=== PATIENT | female | born 1995 | race American Indian/Alaskan Native ===

== ENCOUNTER 2021-01-29 10:51 | Outpatient (CLI) | payer OTHER ==
[2021-01-29 11:33] VITALS: BP 137/67
== END 2021-01-29 12:43 | disposition home or self-care (01) ==
LOC: TRG 10:51 → APU 10:52 → TRG 12:43
PROVIDERS: ATTEND Obstetrics & Gynecology
DX: Z34.90 Encounter for supervision of normal pregnancy, unspecified, unspecified trimester (principal); Z3A.00 Weeks of gestation of pregnancy not specified
CPT/HCPCS: 59025

== ENCOUNTER 2021-03-24 11:21 | Inpatient (IN) | payer SELFPAY ==
[2021-03-24] MEDS ORDERED: LACTATED RINGERS 1,000 ML ONE (13:05)
--- NOTE | 2021-03-24 13:49 | Ultrasound Report ---
ULTRASOUND OBSTETRIC COMPLETE INDICATION / CLINICAL INFORMATION: growth/gestation. No care. Clinical Gestational Age (GA) in weeks.days: Uncertain TECHNIQUE: Transabdominal. COMPARISON: None available. FINDINGS: NUMBER: Single PRESENTATION: cephalic PLACENTA: Left lateral, grade 1 and free of the os. MATERNAL ADNEXA: No significant abnormality. AMNIOTIC FLUID VOLUME: Borderline to mildly increased AMNIOTIC FLUID INDEX (SEFERINO) in cm (if measured): 24.4 ANATOMY: anatomical survey was not performed. MEASUREMENTS: - Biparietal Diameter = 10.0 cm = 41.1 weeks.days - Head Circumference = 34.1 cm = 39.2 weeks.days - Abdominal Circumference = 36.1 cm = 40.0 weeks.days - Femur Length = 6.9 cm = 35.4 weeks.days - Heart Rate (beats per minute): 156 HC/AC ratio: 0.94 Cephalic index: 89.0 Estimated weight: 3713 g AVERAGE ULTRASOUND AGE (AUA) in weeks.days = 39.0 IMPRESSION: 1. Single intrauterine with AUA of 39.0 weeks.days 2. No significant sonographic abnormality. Signer Name: Marcos Cosby Jr, MD Signed: 03/24/2021 1:44 PM Workstation Name: [id number]
[2021-03-24 14:46] LABS: Amorphous Crystals,Urine Few; Bacteria,Urine 1+ /HPF (Negative); Bilirubin,Urine NEG (Negative); Blood,Urine NEG (Negative); Color,Urine Yellow (Yellow); Protein,Urine <15 mg/dL mg/dL (Negative); Urobilinogen,Urine < 2.0 mg/dL (<2.0)
[2021-03-24 14:53] LABS: Amphetamine Screen,Urine Negative; Benzodiazepines Screen,Urine Negative; Cannabinoid Screen,Urine Negative; Cocaine Screen,Urine Negative; Methadone Screen,Urine Negative; Opiate Screen,Urine Negative
[2021-03-24 15:05] LABS: Mean Corpuscular HGB Conc 30 % (30-34); Mean Corpuscular Volume 81 fl (79-97); Platelet Count 308 K/mm3 (140-440); Red Blood Count 4.52 M/mm3 (3.65-5.03); Red Cell Distribution Width 16.2 % (13.2-15.2)
--- NOTE | 2021-03-24 15:13 | History and Physical Report ---
History of Present Illness Date of examination: 03/24/21 Date of admission: 03/24/2021 Chief complaint: I took my blood pressure [place] [facility] [place] and it was high. I am having some pain under my right breast. History of present illness: Pt is a 25 y.o. who presented to triage, unknown gestation and LMP, with c/o an elevated blood pressure that she obtained from [employer]. Also she has some complaints of pain underneath her right breast. She has not had any PNC because she just moved to the [facility] in September. There is some history of high blood pressure in her last , but states that she was not on medication and was never diagnosed with HTN. Hx of in 2014 @ term with possible pre elcampsia. Past History Past Medical History: hypertension (Remote possible history.) Past Surgical History: no surgical history Family/Genetic History: none Social history: no significant social history, single - Obstetrical History Expected Date of Delivery: 03/31/21 (Per triage ultrasound) Actual Gestation: 39 Week(s) 0 Day(s) : 2 Para: 1 Hx # Term Pregnancies: 1 Number of Pregnancies: 0 Spontaneous Abortions: 0 Induced : 1 Medications and Allergies Allergies Allergy/AdvReac Type Severity Reaction Status Date / Time No Known Allergies Allergy Unverified 01/29/21 12:27 Review of Systems All systems: negative Gastrointestinal: abdominal pain (Epigastric pain. ) - Vital Signs Vital signs: Vital Signs Pulse BP Pulse Ox 70 143/92 99 03/24/21 12:14 03/24/21 12:14 03/24/21 12:14 Temp Pulse Resp BP Pulse Ox 118 H 18 147/72 99 03/24/21 15:09 03/24/21 12:16 03/24/21 15:05 03/24/21 15:09 Pt denies POWELL, blurred vision, spots before her eyes, chest pain, and shortness of breath. She does state that she is having some epigastric pain that started this AM. Blood pressure ranges in triage have been 120-160's/60-105. - Physical Exam Breasts: Positive: deferred Cardiovascular: Regular rate Lungs: Positive: Normal air movement Abdomen: Positive: normal appearance, soft Genitourinary (Female): Positive: normal external genitalia, normal perenium Vulva: both: normal Vagina: Positive: normal moisture Uterus: Positive: normal size Extremities: Positive: edema (Trace edema to hands and lower extermities. ) - Obstetrical FHR: category 1 Uterine Contraction Monitor Mode: External Cervical Dilatation: 0 Cervical Effacement Percentage: 30 station: -4 Uterine Contraction Pattern: Irregular Uterine Tone Measurement Phase: Resting Uterine Contraction Intensity: Mild Results Result Diagrams: 03/24/21 13:10 03/24/21 13:10 Abnormal lab results 03/24/21 Range/Units Unknown U Epithel Cells (Auto) 17.0 H (0-13.0) /HPF All other labs normal. GBS UNKNOWN. labs and pre elcampsia labs drawn on admission. Assessment and Plan A: 25 y.o. @ 39 wks per triage u/s. Pre elcampsia. No care, current . - Patient Problems (1) Pre-eclampsia in third trimester Current Visit: Yes Status: Acute Plan to address problem: Admit to labor and delivery. Initiate IV labs. Draw and pre elcampsia labs. Magnesium infusion. Valdez Catheter placement. Initiate IOL with Cervidil. Continue to monitor blood pressures. Continue to monitor for worsening s/sx of pre eclampsia. (2) No care in current in third trimester Current Visit: Yes Status: Acute (3) with 39 completed weeks gestation Current Visit: Yes Status: Acute Plan to address problem: Continuous EFM.
[2021-03-24] MEDS ORDERED: ONDANSETRON 4 MG/2 ML INJ IV PRN (15:17)
[2021-03-24] MEDS ORDERED: CARBOPROST TROMETHAMINE 250 MCG/1 ML INJ IM PRN (15:17)
[2021-03-24] MEDS ORDERED: OXYTOCIN 10 UNIT/1 ML INJ IM PRN (15:17)
[2021-03-24] MEDS ORDERED: fentaNYL 100 MCG/2 ML INJ IV PRN (15:17)
[2021-03-24] MEDS ORDERED: LOPERAMIDE 2 MG CAP PO PRN (15:17)
[2021-03-24] MEDS ORDERED: PROMETHAZINE 25 MG TAB PO PRN (15:17)
[2021-03-24] MEDS ORDERED: BUTORPHANOL 2 MG/1 ML INJ IV PRN (15:17)
[2021-03-24] MEDS ORDERED: TERBUTALINE 1 MG/1 ML INJ SUB-Q PRN (15:17)
[2021-03-24] MEDS ORDERED: LIDOCAINE (2%) 20 MG/1 ML VIAL 20 ML MDV INFILTRATI ONE (15:17)
[2021-03-24] MEDS ORDERED: ePHEDrine SULFATE 50 MG/1 ML INJ IV PRN (15:17)
[2021-03-24] MEDS ORDERED: miSOPROStol 200 MCG TAB PR PRN (15:17)
[2021-03-24] MEDS ORDERED: ACETAMINOPHEN 500 MG TAB PO PRN (15:17)
[2021-03-24] MEDS ORDERED: NALOXONE 0.4 MG/1 ML INJ IV PRN (15:17)
[2021-03-24] MEDS ORDERED: MINERAL OIL 30 ML ORAL LIQD PO PRN (15:17)
[2021-03-24 15:18] LABS: Alanine Aminotransferase 20 units/L (7-56); Uric Acid 2.8 mg/dL (3.5-7.6)
[2021-03-24 15:33] LABS: Hematocrit 36.7 % (30.3-42.9); Hemoglobin 11.1 gm/dl (10.1-14.3)
[2021-03-24 15:49] LABS: Hepatitis C Virus Antibody Non-Reactive (NonReactive)
[2021-03-24] MEDS ORDERED: OXYTOCIN DRIP 30 UNITS/500 ML BAG IV SCH (16:00)
[2021-03-24] MEDS ORDERED: AMPICILLIN/NS 2 GM/100 ML 2 GM/100 ML BAG IV ONE (16:00)
[2021-03-24] MEDS: LACTATED RINGERS 1,000 ML IV SCH (17:04)
[2021-03-24] MEDS ORDERED: MAGNESIUM SULFATE 4 GM/100 ML BAG IV ONE (17:30)
[2021-03-24] MEDS: MAGNESIUM SULFATE 40GM/1000ML 40 GM/1,000 ML BAG IV SCH (17:36)
[2021-03-24] MEDS ORDERED: miSOPROStol 25 MCG TAB VG ONE (18:00)
[2021-03-24] MEDS ORDERED: DINOPROSTONE 10 MG VAG SUPP VG ONE (20:00)
[2021-03-24] MEDS ORDERED: AMPICILLIN/NS 1 GM/50 ML 1 GM/50 ML BAG IV SCH (20:00)
[2021-03-25] MEDS ORDERED: NALOXONE 2 MG/2 ML INJ IV PRN (01:29)
[2021-03-25] MEDS ORDERED: ePHEDrine SULFATE 50 MG/1 ML INJ IV PRN (01:29)
--- NOTE | 2021-03-25 01:30 | Anesthesia Consultation ---
Anesthesia Consult and Med Hx Date of service: 03/25/21 - Airway Anesthetic Teeth Evaluation: Good ROM Head & Neck: Adequate Mental/Hyoid Distance: Adequate Mallampati Class: Class II Intubation Access Assessment: Probably Good - Pulmonary Exam CTA: Yes - Cardiac Exam Cardiac Exam: RRR - Pre-Operative Health Status ASA Pre-Surgery Classification: ASA3 Proposed Anesthetic Plan: Epidural - Pulmonary Hx Asthma: No COPD: No Hx Pneumonia: No - Cardiovascular System Hx Hypertension: Yes - Central Nervous System Hx Seizures: No Hx Psychiatric Problems: No - Endocrine Hx Renal Disease: No Hx End Stage Renal Disease: No Hx Hypothyroidism: No Hx Hyperthyroidism: No - Hematic Hx Anemia: No Hx Sickle Cell Disease: No - Other Systems Hx Alcohol Use: No
[2021-03-25] MEDS ORDERED: fentaNYL-BUPIV 2 MCG/ML-0.125% 200 MCG/100 ML BAG EPIDURAL SCH (02:00)
[2021-03-25] MEDS: LACTATED RINGERS 1,000 ML IV SCH (06:25)
[2021-03-25] MEDS ORDERED: OXYTOCIN DRIP 30 UNITS/500 ML BAG IV SCH (12:00)
[2021-03-25] MEDS ORDERED: FLU VACC QUAD 2021-22(6MOS UP)/PF 60 MCG/0.5 ML SYRINGE IM ONE (12:00)
--- NOTE | 2021-03-25 12:23 | Progress Note ---
Assessment and Plan pt resting, denies visual changes, epigastric pain or POWELL. She does report painful ctx, SVE 1cms by RN when cervidil removed. Will continue titrating pitocin for adequate labor and revaluate as needed. If no s/s labor after 6 hours, will allow patient to eat and replace cervidil or low dose pitocin tonight. Plan reviewed with patient, all questions addressed. - Patient Problems (1) No care in current in third trimester Current Visit: Yes Status: Acute (2) Pre-eclampsia in third trimester Current Visit: Yes Status: Acute Plan to address problem: Continue IOL Mag sulfate 2gm/hr mag levels q6hrs strict I&O monitor for worsening s/s pre-e (3) with 39 completed weeks gestation Current Visit: Yes Status: Acute Subjective - Subjective Date of service: 03/25/21 Principal diagnosis: IUP @ 39 weeks, no care; pre-e IOL Patient reports: movement normal, contractions, no loss of fluid, no vaginal bleeding, no other (denies POWELL, visual changes or epigastric pain) Objective - Vital Signs Vital Signs: Vital Signs - 12hr 03/25/21 03/25/21 03/25/21 00:22 00:27 00:32 Temperature Pulse Rate 114 H 124 H 124 H Respiratory Rate Blood Pressure Blood Pressure [Left] O2 Sat by Pulse 99 99 98 Oximetry O2 Sat by Pulse Oximetry [ Throughout] 03/25/21 03/25/21 03/25/21 00:37 00:42 00:46 Temperature Pulse Rate 114 H 110 H 117 H Respiratory Rate Blood Pressure 145/68 146/69 Blood Pressure [Left] O2 Sat by Pulse 98 98 Oximetry O2 Sat by Pulse Oximetry [ Throughout] 03/25/21 03/25/21 03/25/21 00:47 00:52 00:57 Temperature Pulse Rate 118 H 112 H 115 H Respiratory Rate Blood Pressure Blood Pressure [Left] O2 Sat by Pulse 99 97 99 Oximetry O2 Sat by Pulse Oximetry [ Throughout] 03/25/21 03/25/21 03/25/21 01:00 01:02 01:07 Temperature 98.3 F Pulse Rate 112 H 112 H 117 H Respiratory 20 Rate Blood Pressure Blood Pressure [Left] O2 Sat by Pulse 98 97 98 Oximetry O2 Sat by Pulse Oximetry [ Throughout] 03/25/21 03/25/2103/25/21 01:09 01:12 01:15 Temperature Pulse Rate 105 H 111 H 116 H Respiratory Rate Blood Pressure 141/73 Blood Pressure [Left] O2 Sat by Pulse 98 94 Oximetry O2 Sat by Pulse Oximetry [ Throughout] 03/25/21 03/25/21 03/25/21 01:17 01:22 01:27 Temperature Pulse Rate 112 H 117 H 116 H Respiratory Rate Blood Pressure Blood Pressure [Left] O2 Sat by Pulse 95 98 98 Oximetry O2 Sat by Pulse Oximetry [ Throughout] 03/25/21 03/25/21 03/25/21 01:32 01:37 01:39 Temperature Pulse Rate 108 H 110 H 107 H Respiratory Rate Blood Pressure 143/70 Blood Pressure [Left] O2 Sat by Pulse 98 96 Oximetry O2 Sat by Pulse Oximetry [ Throughout] 03/25/21 03/25/21 03/25/21 01:42 01:47 01:52 Temperature Pulse Rate 112 H 109 H 106 H Respiratory Rate Blood Pressure Blood Pressure [Left] O2 Sat by Pulse 98 99 98 Oximetry O2 Sat by Pulse Oximetry [ Throughout] 03/25/21 03/25/21 03/25/21 01:57 02:02 02:07 Temperature Pulse Rate 103 H 103 H 109 H Respiratory Rate Blood Pressure 146/67 Blood Pressure [Left] O2 Sat by Pulse 98 97 99 Oximetry O2 Sat by Pulse Oximetry [ Throughout] 03/25/21 03/25/21 03/25/21 02:12 02:17 02:22 Temperature Pulse Rate 114 H 104 H 117 H Respiratory Rate Blood Pressure Blood Pressure [Left] O2 Sat by Pulse 99 98 99 Oximetry O2 Sat by Pulse Oximetry [ Throughout] 03/25/21 03/25/21 03/25/21 02:27 02:30 02:32 Temperature 98.7 F Pulse Rate 118 H 115 H 105 H Respiratory 20 Rate Blood Pressure Blood Pressure [Left] O2 Sat by Pulse 98 98 98 Oximetry O2 Sat by Pulse Oximetry [ Throughout] 03/25/21 03/25/21 03/25/21 02:37 02:42 02:47 Temperature Pulse Rate 115 H 106 H 105 H Respiratory Rate Blood Pressure 140/73 Blood Pressure [Left] O2 Sat by Pulse 99 97 99 Oximetry O2 Sat by Pulse Oximetry [ Throughout] 03/25/21 03/25/21 03/25/21 02:52 02:57 03:02 Temperature Pulse Rate 104 H 105 H 103 H Respiratory Rate Blood Pressure Blood Pressure [Left] O2 Sat by Pulse 98 98 98 Oximetry O2 Sat by Pulse Oximetry [ Throughout] 03/25/21 03/25/21 03/25/21 03:07 03:12 03:17 Temperature Pulse Rate 105 H 106 H 109 H Respiratory Rate Blood Pressure 133/62 Blood Pressure [Left] O2 Sat by Pulse 98 97 97 Oximetry O2 Sat by Pulse Oximetry [ Throughout] 03/25/21 03/25/21 03/25/21 03:22 03:27 03:29 Temperature Pulse Rate 118 H 123 H 114 H Respiratory Rate Blood Pressure Blood Pressure [Left] O2 Sat by Pulse 96 97 94 Oximetry O2 Sat by Pulse Oximetry [ Throughout] 03/25/21 03/25/21 03/25/21 03:32 03:37 03:40 Temperature 97.9 F Pulse Rate 120 H 115 H 115 H Respiratory 18 Rate Blood Pressure 144/70 Blood Pressure [Left] O2 Sat by Pulse 99 98 98 Oximetry O2 Sat by Pulse Oximetry [ Throughout] 03/25/21 03/25/21 03/25/21 03:42 03:47 03:52 Temperature Pulse Rate 119 H 122 H 119 H Respiratory Rate Blood Pressure Blood Pressure [Left] O2 Sat by Pulse 96 99 97 Oximetry O2 Sat by Pulse Oximetry [ Throughout] 03/25/21 03/25/21 03/25/21 03:57 04:02 04:07 Temperature Pulse Rate 108 H 120 H 112 H Respiratory Rate Blood Pressure Blood Pressure [Left] O2 Sat by Pulse 98 98 99 Oximetry O2 Sat by Pulse Oximetry [ Throughout] 03/25/21 03/25/21 03/25/21 04:08 04:12 04:17 Temperature Pulse Rate 116 H 115 H 109 H Respiratory Rate Blood Pressure 141/80 Blood Pressure [Left] O2 Sat by Pulse 99 99 Oximetry O2 Sat by Pulse Oximetry [ Throughout] 03/25/21 03/25/21 03/25/21 04:22 04:27 04:30 Temperature 98.2 F Pulse Rate 112 H 108 H 108 H Respiratory 20 Rate Blood Pressure Blood Pressure [Left] O2 Sat by Pulse 99 99 98 Oximetry O2 Sat by Pulse Oximetry [ Throughout] 03/25/21 03/25/21 03/25/21 04:32 04:37 04:42 Temperature Pulse Rate 118 H 105 H 113 H Respiratory Rate Blood Pressure 144/71 Blood Pressure [Left] O2 Sat by Pulse 98 98 98 Oximetry O2 Sat by Pulse Oximetry [ Throughout] 03/25/21 03/25/21 03/25/21 04:47 04:52 04:57 Temperature Pulse Rate 112 H 105 H 108 H Respiratory Rate Blood Pressure Blood Pressure [Left] O2 Sat by Pulse 98 98 98 Oximetry O2 Sat by Pulse Oximetry [ Throughout] 03/25/21 03/25/21 03/25/21 05:02 05:07 05:12 Temperature Pulse Rate 109 H 115 H 109 H Respiratory Rate Blood Pressure 139/73 Blood Pressure [Left] O2 Sat by Pulse 97 99 98 Oximetry O2 Sat by Pulse Oximetry [ Throughout] 03/25/21 03/25/21 03/25/21 05:17 05:22 05:27 Temperature Pulse Rate 107 H 102 H 111 H Respiratory Rate Blood Pressure Blood Pressure [Left] O2 Sat by Pulse 97 97 98 Oximetry O2 Sat by Pulse Oximetry [ Throughout] 03/25/21 03/25/21 03/25/21 05:30 05:32 05:37 Temperature 98.7 F Pulse Rate 111 H 113 H 112 H Respiratory 20 Rate Blood Pressure Blood Pressure [Left] O2 Sat by Pulse 98 97 98 Oximetry O2 Sat by Pulse Oximetry [ Throughout] 03/25/21 03/25/21 03/25/21 05:38 05:42 05:47 Temperature Pulse Rate 112 H 111 H 120 H Respiratory Rate Blood Pressure 138/69 Blood Pressure [Left] O2 Sat by Pulse 98 98 Oximetry O2 Sat by Pulse Oximetry [ Throughout] 03/25/21 03/25/21 03/25/21 05:52 05:57 06:02 Temperature Pulse Rate 108 H 107 H 111 H Respiratory Rate Blood Pressure Blood Pressure [Left] O2 Sat by Pulse 98 100 98 Oximetry O2 Sat by Pulse Oximetry [ Throughout] 03/25/21 03/25/21 03/25/21 06:07 06:08 06:12 Temperature Pulse Rate 108 H 106 H 107 H Respiratory Rate Blood Pressure 148/67 Blood Pressure [Left] O2 Sat by Pulse 99 98 Oximetry O2 Sat by Pulse Oximetry [ Throughout] 03/25/21 03/25/21 03/25/21 06:17 06:22 06:25 Temperature 98.8 F Pulse Rate 107 H 111 H 110 H Respiratory 18 Rate Blood Pressure Blood Pressure [Left] O2 Sat by Pulse 98 98 99 Oximetry O2 Sat by Pulse Oximetry [ Throughout] 03/25/21 03/25/21 03/25/21 06:27 06:32 06:37 Temperature Pulse Rate 106 H 114 H 114 H Respiratory Rate Blood Pressure 149/67 Blood Pressure [Left] O2 Sat by Pulse 98 97 98 Oximetry O2 Sat by Pulse Oximetry [ Throughout] 03/25/21 03/25/21 03/25/21 06:42 06:47 06:52 Temperature Pulse Rate 107 H 107 H 105 H Respiratory Rate Blood Pressure Blood Pressure [Left] O2 Sat by Pulse 97 98 97 Oximetry O2 Sat by Pulse Oximetry [ Throughout] 03/25/21 03/25/21 03/25/21 06:57 07:01 07:02 Temperature 98.0 F Pulse Rate 114 H 111 H 115 H Respiratory 20 Rate Blood Pressure 142/67 Blood Pressure 142/67 [Left] O2 Sat by Pulse 97 99 99 Oximetry O2 Sat by Pulse Oximetry [ Throughout] 03/25/21 03/25/21 03/25/21 07:07 07:12 07:17 Temperature Pulse Rate 107 H 105 H 113 H Respiratory Rate Blood Pressure Blood Pressure [Left] O2 Sat by Pulse 98 99 99 Oximetry O2 Sat by Pulse Oximetry [ Throughout] 03/25/21 03/25/21 03/25/21 07:22 07:27 07:31 Temperature Pulse Rate 109 H 103 H Respiratory Rate Blood Pressure Blood Pressure [Left] O2 Sat by Pulse 96 98 Oximetry O2 Sat by Pulse 98 Oximetry [ Throughout] 03/25/21 03/25/21 03/25/21 07:32 07:37 07:42 Temperature Pulse Rate 108 H 116 H 110 H Respiratory Rate Blood Pressure Blood Pressure [Left] O2 Sat by Pulse 98 99 98 Oximetry O2 Sat by Pulse Oximetry [ Throughout] 03/25/21 03/25/21 03/25/21 07:47 07:52 07:57 Temperature Pulse Rate 109 H 115 H 112 H Respiratory Rate Blood Pressure Blood Pressure [Left] O2 Sat by Pulse 98 99 98 Oximetry O2 Sat by Pulse Oximetry [ Throughout] 03/25/21 03/25/21 03/25/21 08:02 08:03 08:07 Temperature Pulse Rate 125 H 120 H 116 H Respiratory Rate Blood Pressure 145/66 Blood Pressure [Left] O2 Sat by Pulse 99 97 Oximetry O2 Sat by Pulse Oximetry [ Throughout] 03/25/21 03/25/21 03/25/21 08:12 08:17 08:22 Temperature Pulse Rate 110 H 109 H 113 H Respiratory Rate Blood Pressure Blood Pressure [Left] O2 Sat by Pulse 98 99 98 Oximetry O2 Sat by Pulse Oximetry [ Throughout] 03/25/21 03/25/21 03/25/21 08:27 08:32 08:37 Temperature Pulse Rate 110 H 116 H 109 H Respiratory Rate Blood Pressure Blood Pressure [Left] O2 Sat by Pulse 99 99 98 Oximetry O2 Sat by Pulse Oximetry [ Throughout] 03/25/21 03/25/21 03/25/21 08:42 08:47 08:52 Temperature Pulse Rate 118 H 115 H 115 H Respiratory Rate Blood Pressure Blood Pressure [Left] O2 Sat by Pulse 99 99 98 Oximetry O2 Sat by Pulse Oximetry [ Throughout] 03/25/21 03/25/21 03/25/21 08:57 09:02 09:03 Temperature Pulse Rate 112 H 117 H 115 H Respiratory Rate Blood Pressure 151/67 Blood Pressure [Left] O2 Sat by Pulse 98 99 Oximetry O2 Sat by Pulse Oximetry [ Throughout] 03/25/21 03/25/21 03/25/21 09:07 09:12 09:17 Temperature Pulse Rate 115 H 111 H 124 H Respiratory Rate Blood Pressure Blood Pressure [Left] O2 Sat by Pulse 97 99 98 Oximetry O2 Sat by Pulse Oximetry [ Throughout] 03/25/21 03/25/21 03/25/21 09:22 09:27 09:32 Temperature Pulse Rate 112 H 121 H 119 H Respiratory Rate Blood Pressure Blood Pressure [Left] O2 Sat by Pulse 97 98 99 Oximetry O2 Sat by Pulse Oximetry [ Throughout] 03/25/21 03/25/21 03/25/21 09:37 09:42 09:47 Temperature Pulse Rate 114 H 114 H 113 H Respiratory Rate Blood Pressure Blood Pressure [Left] O2 Sat by Pulse 98 98 97 Oximetry O2 Sat by Pulse Oximetry [ Throughout] 03/25/21 03/25/21 03/25/21 09:52 09:57 10:02 Temperature Pulse Rate 119 H 112 H 116 H Respiratory Rate Blood Pressure 141/65 Blood Pressure [Left] O2 Sat by Pulse 98 98 98 Oximetry O2 Sat by Pulse Oximetry [ Throughout] 03/25/21 03/25/21 03/25/21 10:07 10:12 10:17 Temperature Pulse Rate 119 H 111 H 115 H Respiratory Rate Blood Pressure Blood Pressure [Left] O2 Sat by Pulse 96 98 99 Oximetry O2 Sat by Pulse Oximetry [ Throughout] 03/25/21 03/25/21 03/25/21 10:22 10:27 10:32 Temperature Pulse Rate 110 H 121 H 114 H Respiratory Rate Blood Pressure Blood Pressure [Left] O2 Sat by Pulse 98 98 99 Oximetry O2 Sat by Pulse Oximetry [ Throughout] 03/25/21 03/25/21 03/25/21 10:37 10:42 10:47 Temperature Pulse Rate 112 H 114 H 113 H Respiratory Rate Blood Pressure Blood Pressure [Left] O2 Sat by Pulse 98 98 98 Oximetry O2 Sat by Pulse Oximetry [ Throughout] 03/25/21 03/25/21 03/25/21 10:49 10:52 10:57 Temperature 98.3 F Pulse Rate 105 H 111 H 111 H Respiratory 18 Rate Blood Pressure Blood Pressure [Left] O2 Sat by Pulse 98 98 98 Oximetry O2 Sat by Pulse Oximetry [ Throughout] 03/25/21 03/25/21 03/25/21 11:02 11:03 11:07 Temperature Pulse Rate 110 H 111 H 109 H Respiratory Rate Blood Pressure 137/65 Blood Pressure [Left] O2 Sat by Pulse 97 98 Oximetry O2 Sat by Pulse Oximetry [ Throughout] 03/25/21 03/25/21 03/25/21 11:12 11:17 11:22 Temperature Pulse Rate 112 H 113 H 110 H Respiratory Rate Blood Pressure Blood Pressure [Left] O2 Sat by Pulse 98 98 97 Oximetry O2 Sat by Pulse Oximetry [ Throughout] 03/25/21 03/25/21 03/25/21 11:27 11:32 11:37 Temperature Pulse Rate 109 H 114 H 118 H Respiratory Rate Blood Pressure Blood Pressure [Left] O2 Sat by Pulse 98 98 98 Oximetry O2 Sat by Pulse Oximetry [ Throughout] 03/25/21 03/25/21 03/25/21 11:42 11:47 11:52 Temperature Pulse Rate 120 H 118 H 111 H Respiratory Rate Blood Pressure Blood Pressure [Left] O2 Sat by Pulse 98 97 98 Oximetry O2 Sat by Pulse Oximetry [ Throughout] 03/25/21 03/25/21 03/25/21 11:57 12:02 12:07 Temperature Pulse Rate 106 H 110 H 113 H Respiratory Rate Blood Pressure 134/63 Blood Pressure [Left] O2 Sat by Pulse 98 99 99 Oximetry O2 Sat by Pulse Oximetry [ Throughout] 03/25/21 03/25/21 12:12 12:17 Temperature Pulse Rate 108 H 106 H Respiratory Rate Blood Pressure Blood Pressure [Left] O2 Sat by Pulse 99 98 Oximetry O2 Sat by Pulse Oximetry [ Throughout] - Exam Cardiovascular: Regular rate Lungs: Normal air movement Abdomen: Present: normal appearance, soft, normal bowel sounds Uterus: Present: normal FHR: category 2 Uterine Contraction Monitor Mode: External Cervical Dilatation: 1 (per RN) Cervical Effacement Percentage: 30 Uterine Contraction Pattern: Regular Uterine Tone Measurement Phase: Contraction Uterine Contraction Intensity: Mild Extremities: normal Deep Tendon Reflex Grade: Normal +2 - Labs Labs: Abnormal Labs 03/24/21 03/24/21 03/24/21 13:10 13:10 18:49 MCH 25 L RDW 16.2 H Creatinine 0.5 L Uric Acid 2.8 L Magnesium 2.80 H Lactate Dehydrogenase 233 H U Epithel Cells (Auto) 03/24/21 03/25/21 03/25/21 Unknown 00:19 05:56 MCH RDW Creatinine Uric Acid Magnesium 3.60 H 3.90 H Lactate Dehydrogenase U Epithel Cells (Auto) 17.0 H Laboratory Results - last 24 hr 03/24/21 03/24/21 03/24/21 13:10 13:10 13:10 WBC 10.5 RBC 4.52 Hgb 11.1 Hct 36.7 MCV 81 MCH 25 L MCHC 30 RDW 16.2 H Plt Count 308 Creatinine 0.5 L Estimated GFR > 60 Uric Acid 2.8 L Magnesium AST 24 ALT 20 Lactate Dehydrogenase 233 H Urine Color Urine Turbidity Urine pH Ur Specific [place] Urine Protein Urine Glucose (UA) Urine Ketones Urine Blood Urine Nitrite Urine Bilirubin Urine Urobilinogen Ur Leukocyte Esterase Urine WBC (Auto) Urine RBC (Auto) U Epithel Cells (Auto) Urine Bacteria (Auto) Amorphous Crystals Urine Opiates Screen Urine Methadone Screen Ur Barbiturates Screen Ur Phencyclidine Scrn Ur Amphetamines Screen U Benzodiazepines Scrn Urine Cocaine Screen U Marijuana (THC) Screen Drugs of Abuse Note Syphilis IgG Antibody Nonreactive Hep Bs Antigen Hepatitis C Antibody Non-reactive HIV 1&2 Antibody Rapid Non react HIV P24 Antigen Non react Rubella IgG Antibody Immune Blood Type Antibody Screen 03/24/21 03/24/21 03/24/21 13:10 13:10 18:49 WBC RBC Hgb Hct MCV MCH MCHC RDW Plt Count Creatinine Estimated GFR Uric Acid Magnesium 2.80 H AST ALT Lactate Dehydrogenase Urine Color Urine Turbidity Urine pH Ur Specific [place] Urine Protein Urine Glucose (UA) Urine Ketones Urine Blood Urine Nitrite Urine Bilirubin Urine Urobilinogen Ur Leukocyte Esterase Urine WBC (Auto) Urine RBC (Auto) U Epithel Cells (Auto) Urine Bacteria (Auto) Amorphous Crystals Urine Opiates Screen Urine Methadone Screen Ur Barbiturates Screen Ur Phencyclidine Scrn Ur Amphetamines Screen U Benzodiazepines Scrn Urine Cocaine Screen U Marijuana (THC) Screen Drugs of Abuse Note Syphilis IgG Antibody Hep Bs Antigen Nonreactive Hepatitis C Antibody HIV 1&2 Antibody Rapid HIV P24 Antigen Rubella IgG Antibody Blood Type B POSITIVE Antibody Screen Negative 03/24/21 03/24/21 03/25/21 Unknown Unknown 00:19 WBC RBC Hgb Hct MCV MCH MCHC RDW Plt Count Creatinine Estimated GFR Uric Acid Magnesium 3.60 H AST ALT Lactate Dehydrogenase Urine Color Yellow Urine Turbidity Clear Urine pH 7.0 Ur Specific [place] 1.004 Urine Protein <15 mg/dl Urine Glucose (UA) Neg Urine Ketones Neg Urine Blood Neg Urine Nitrite Neg Urine Bilirubin Neg Urine Urobilinogen < 2.0 Ur Leukocyte Esterase Neg Urine WBC (Auto) 2.0 Urine RBC (Auto) 1.0 U Epithel Cells (Auto) 17.0 H Urine Bacteria (Auto) 1+ Amorphous Crystals Few Urine Opiates Screen Negative Urine Methadone Screen Negative Ur Barbiturates Screen Negative Ur Phencyclidine Scrn Negative Ur Amphetamines Screen Negative U Benzodiazepines Scrn Negative Urine Cocaine Screen Negative U Marijuana (THC) Screen Negative Drugs of Abuse Note Disclamer Syphilis IgG Antibody Hep Bs Antigen Hepatitis C Antibody HIV 1&2 Antibody Rapid HIV P24 Antigen Rubella IgG Antibody Blood Type Antibody Screen 03/25/21 05:56 WBC RBC Hgb Hct MCV MCH MCHC RDW Plt Count Creatinine Estimated GFR Uric Acid Magnesium 3.90 H AST ALT Lactate Dehydrogenase Urine Color Urine Turbidity Urine pH Ur Specific [place] Urine Protein Urine Glucose (UA) Urine Ketones Urine Blood Urine Nitrite Urine Bilirubin Urine Urobilinogen Ur Leukocyte Esterase Urine WBC (Auto) Urine RBC (Auto) U Epithel Cells (Auto) Urine Bacteria (Auto) Amorphous Crystals Urine Opiates Screen Urine Methadone Screen Ur Barbiturates Screen Ur Phencyclidine Scrn Ur Amphetamines Screen U Benzodiazepines Scrn Urine Cocaine Screen U Marijuana (THC) Screen Drugs of Abuse Note Syphilis IgG Antibody Hep Bs Antigen Hepatitis C Antibody HIV 1&2 Antibody Rapid HIV P24 Antigen Rubella IgG Antibody Blood Type Antibody Screen
[2021-03-25] MEDS: MAGNESIUM SULFATE 40GM/1000ML 40 GM/1,000 ML BAG IV SCH (13:10)
[2021-03-25] MEDS ORDERED: AMPICILLIN/NS 2 GM/100 ML 2 GM/100 ML BAG IV ONE (15:00)
--- NOTE | 2021-03-25 16:34 | Progress Note ---
Assessment and Plan patient c/o increased pain with ctx and leaking fluid. SVE done 3.5/80/-2 w/ BBOW. vertex nexted. AROM of forebag - clear. Offered pain intervention - pt denies. states she went natural with last baby and plans on natural this baby. Anticipate - Patient Problems (1) No care in current in third trimester Current Visit: Yes Status: Acute (2) Pre-eclampsia in third trimester Current Visit: Yes Status: Acute Plan to address problem: Continue IOL Mag sulfate 2gm/hr mag levels q6hrs strict I&O monitor for worsening s/s pre-e (3) with 39 completed weeks gestation Current Visit: Yes Status: Acute Subjective - Subjective Date of service: 03/25/21 Principal diagnosis: IUP @ 39 weeks, no care; pre-e IOL Patient reports: loss of fluid (SROM ), movement normal, contractions, no vaginal bleeding, no other (denies POWELL, visual changes or epigastric pain) Objective - Vital Signs Vital Signs: Vital Signs - 12hr 03/25/21 03/25/21 03/25/21 04:32 04:37 04:42 Temperature Pulse Rate 118 H 105 H 113 H Respiratory Rate Blood Pressure 144/71 Blood Pressure [Left] O2 Sat by Pulse 98 98 98 Oximetry O2 Sat by Pulse Oximetry [ Throughout] 03/25/21 03/25/21 03/25/21 04:47 04:52 04:57 Temperature Pulse Rate 112 H 105 H 108 H Respiratory Rate Blood Pressure Blood Pressure [Left] O2 Sat by Pulse 98 98 98 Oximetry O2 Sat by Pulse Oximetry [ Throughout] 03/25/21 03/25/21 03/25/21 05:02 05:07 05:12 Temperature Pulse Rate 109 H 115 H 109 H Respiratory Rate Blood Pressure 139/73 Blood Pressure [Left] O2 Sat by Pulse 97 99 98 Oximetry O2 Sat by Pulse Oximetry [ Throughout] 03/25/21 03/25/21 03/25/21 05:17 05:22 05:27 Temperature Pulse Rate 107 H 102 H 111 H Respiratory Rate Blood Pressure Blood Pressure [Left] O2 Sat by Pulse 97 97 98 Oximetry O2 Sat by Pulse Oximetry [ Throughout] 03/25/21 03/25/21 03/25/21 05:30 05:32 05:37 Temperature 98.7 F Pulse Rate 111 H 113 H 112 H Respiratory 20 Rate Blood Pressure Blood Pressure [Left] O2 Sat by Pulse 98 97 98 Oximetry O2 Sat by Pulse Oximetry [ Throughout] 03/25/21 03/25/21 03/25/21 05:38 05:42 05:47 Temperature Pulse Rate 112 H 111 H 120 H Respiratory Rate Blood Pressure 138/69 Blood Pressure [Left] O2 Sat by Pulse 98 98 Oximetry O2 Sat by Pulse Oximetry [ Throughout] 03/25/21 03/25/21 03/25/21 05:52 05:57 06:02 Temperature Pulse Rate 108 H 107 H 111 H Respiratory Rate Blood Pressure Blood Pressure [Left] O2 Sat by Pulse 98 100 98 Oximetry O2 Sat by Pulse Oximetry [ Throughout] 03/25/21 03/25/21 03/25/21 06:07 06:08 06:12 Temperature Pulse Rate 108 H 106 H 107 H Respiratory Rate Blood Pressure 148/67 Blood Pressure [Left] O2 Sat by Pulse 99 98 Oximetry O2 Sat by Pulse Oximetry [ Throughout] 03/25/21 03/25/21 03/25/21 06:17 06:22 06:25 Temperature 98.8 F Pulse Rate 107 H 111 H 110 H Respiratory 18 Rate Blood Pressure Blood Pressure [Left] O2 Sat by Pulse 98 98 99 Oximetry O2 Sat by Pulse Oximetry [ Throughout] 03/25/21 03/25/21 03/25/21 06:27 06:32 06:37 Temperature Pulse Rate 106 H 114 H 114 H Respiratory Rate Blood Pressure 149/67 Blood Pressure [Left] O2 Sat by Pulse 98 97 98 Oximetry O2 Sat by Pulse Oximetry [ Throughout] 03/25/21 03/25/21 03/25/21 06:42 06:47 06:52 Temperature Pulse Rate 107 H 107 H 105 H Respiratory Rate Blood Pressure Blood Pressure [Left] O2 Sat by Pulse 97 98 97 Oximetry O2 Sat by Pulse Oximetry [ Throughout] 03/25/21 03/25/21 03/25/21 06:57 07:01 07:02 Temperature 98.0 F Pulse Rate 114 H 111 H 115 H Respiratory 20 Rate Blood Pressure 142/67 Blood Pressure 142/67 [Left] O2 Sat by Pulse 97 99 99 Oximetry O2 Sat by Pulse Oximetry [ Throughout] 03/25/21 03/25/21 03/25/21 07:07 07:12 07:17 Temperature Pulse Rate 107 H 105 H 113 H Respiratory Rate Blood Pressure Blood Pressure [Left] O2 Sat by Pulse 98 99 99 Oximetry O2 Sat by Pulse Oximetry [ Throughout] 03/25/21 03/25/21 03/25/21 07:22 07:27 07:31 Temperature Pulse Rate 109 H 103 H Respiratory Rate Blood Pressure Blood Pressure [Left] O2 Sat by Pulse 96 98 Oximetry O2 Sat by Pulse 98 Oximetry [ Throughout] 03/25/21 03/25/21 03/25/21 07:32 07:37 07:42 Temperature Pulse Rate 108 H 116 H 110 H Respiratory Rate Blood Pressure Blood Pressure [Left] O2 Sat by Pulse 98 99 98 Oximetry O2 Sat by Pulse Oximetry [ Throughout] 03/25/21 03/25/21 03/25/21 07:47 07:52 07:57 Temperature Pulse Rate 109 H 115 H 112 H Respiratory Rate Blood Pressure Blood Pressure [Left] O2 Sat by Pulse 98 99 98 Oximetry O2 Sat by Pulse Oximetry [ Throughout] 03/25/21 03/25/21 03/25/21 08:02 08:03 08:07 Temperature Pulse Rate 125 H 120 H 116 H Respiratory Rate Blood Pressure 145/66 Blood Pressure [Left] O2 Sat by Pulse 99 97 Oximetry O2 Sat by Pulse Oximetry [ Throughout] 03/25/21 03/25/21 03/25/21 08:12 08:17 08:22 Temperature Pulse Rate 110 H 109 H 113 H Respiratory Rate Blood Pressure Blood Pressure [Left] O2 Sat by Pulse 98 99 98 Oximetry O2 Sat by Pulse Oximetry [ Throughout] 03/25/21 03/25/21 03/25/21 08:27 08:32 08:37 Temperature Pulse Rate 110 H 116 H 109 H Respiratory Rate Blood Pressure Blood Pressure [Left] O2 Sat by Pulse 99 99 98 Oximetry O2 Sat by Pulse Oximetry [ Throughout] 03/25/21 03/25/21 03/25/21 08:42 08:47 08:52 Temperature Pulse Rate 118 H 115 H 115 H Respiratory Rate Blood Pressure Blood Pressure [Left] O2 Sat by Pulse 99 99 98 Oximetry O2 Sat by Pulse Oximetry [ Throughout] 03/25/21 03/25/21 03/25/21 08:57 09:02 09:03 Temperature Pulse Rate 112 H 117 H 115 H Respiratory Rate Blood Pressure 151/67 Blood Pressure [Left] O2 Sat by Pulse 98 99 Oximetry O2 Sat by Pulse Oximetry [ Throughout] 03/25/21 03/25/21 03/25/21 09:07 09:12 09:17 Temperature Pulse Rate 115 H 111 H 124 H Respiratory Rate Blood Pressure Blood Pressure [Left] O2 Sat by Pulse 97 99 98 Oximetry O2 Sat by Pulse Oximetry [ Throughout] 03/25/21 03/25/21 03/25/21 09:22 09:27 09:32 Temperature Pulse Rate 112 H 121 H 119 H Respiratory Rate Blood Pressure Blood Pressure [Left] O2 Sat by Pulse 97 98 99 Oximetry O2 Sat by Pulse Oximetry [ Throughout] 03/25/21 03/25/21 03/25/21 09:37 09:42 09:47 Temperature Pulse Rate 114 H 114 H 113 H Respiratory Rate Blood Pressure Blood Pressure [Left] O2 Sat by Pulse 98 98 97 Oximetry O2 Sat by Pulse Oximetry [ Throughout] 03/25/21 03/25/21 03/25/21 09:52 09:57 10:02 Temperature Pulse Rate 119 H 112 H 116 H Respiratory Rate Blood Pressure 141/65 Blood Pressure [Left] O2 Sat by Pulse 98 98 98 Oximetry O2 Sat by Pulse Oximetry [ Throughout] 03/25/21 03/25/21 03/25/21 10:07 10:12 10:17 Temperature Pulse Rate 119 H 111 H 115 H Respiratory Rate Blood Pressure Blood Pressure [Left] O2 Sat by Pulse 96 98 99 Oximetry O2 Sat by Pulse Oximetry [ Throughout] 03/25/21 03/25/21 03/25/21 10:22 10:27 10:32 Temperature Pulse Rate 110 H 121 H 114 H Respiratory Rate Blood Pressure Blood Pressure [Left] O2 Sat by Pulse 98 98 99 Oximetry O2 Sat by Pulse Oximetry [ Throughout] 03/25/21 03/25/21 03/25/21 10:37 10:42 10:47 Temperature Pulse Rate 112 H 114 H 113 H Respiratory Rate Blood Pressure Blood Pressure [Left] O2 Sat by Pulse 98 98 98 Oximetry O2 Sat by Pulse Oximetry [ Throughout] 03/25/21 03/25/21 03/25/21 10:49 10:52 10:57 Temperature 98.3 F Pulse Rate 105 H 111 H 111 H Respiratory 18 Rate Blood Pressure Blood Pressure [Left] O2 Sat by Pulse 98 98 98 Oximetry O2 Sat by Pulse Oximetry [ Throughout] 03/25/21 03/25/21 03/25/21 11:02 11:03 11:07 Temperature Pulse Rate 110 H 111 H 109 H Respiratory Rate Blood Pressure 137/65 Blood Pressure [Left] O2 Sat by Pulse 97 98 Oximetry O2 Sat by Pulse Oximetry [ Throughout] 03/25/21 03/25/21 03/25/21 11:12 11:17 11:22 Temperature Pulse Rate 112 H 113 H 110 H Respiratory Rate Blood Pressure Blood Pressure [Left] O2 Sat by Pulse 98 98 97 Oximetry O2 Sat by Pulse Oximetry [ Throughout] 03/25/21 03/25/21 03/25/21 11:27 11:32 11:37 Temperature Pulse Rate 109 H 114 H 118 H Respiratory Rate Blood Pressure Blood Pressure [Left] O2 Sat by Pulse 98 98 98 Oximetry O2 Sat by Pulse Oximetry [ Throughout] 03/25/21 03/25/21 03/25/21 11:42 11:47 11:52 Temperature Pulse Rate 120 H 118 H 111 H Respiratory Rate Blood Pressure Blood Pressure [Left] O2 Sat by Pulse 98 97 98 Oximetry O2 Sat by Pulse Oximetry [ Throughout] 03/25/21 03/25/21 03/25/21 11:57 12:02 12:07 Temperature Pulse Rate 106 H 110 H 113 H Respiratory Rate Blood Pressure 134/63 Blood Pressure [Left] O2 Sat by Pulse 98 99 99 Oximetry O2 Sat by Pulse Oximetry [ Throughout] 03/25/21 03/25/21 03/25/21 12:12 12:17 12:22 Temperature Pulse Rate 108 H 106 H 118 H Respiratory Rate Blood Pressure Blood Pressure [Left] O2 Sat by Pulse 99 98 99 Oximetry O2 Sat by Pulse Oximetry [ Throughout] 03/25/21 03/25/21 03/25/21 12:27 12:32 12:37 Temperature Pulse Rate 113 H 114 H 112 H Respiratory Rate Blood Pressure Blood Pressure [Left] O2 Sat by Pulse 98 96 96 Oximetry O2 Sat by Pulse Oximetry [ Throughout] 03/25/21 03/25/21 03/25/21 12:42 12:47 12:52 Temperature Pulse Rate 112 H 118 H 112 H Respiratory Rate Blood Pressure Blood Pressure [Left] O2 Sat by Pulse 98 99 99 Oximetry O2 Sat by Pulse Oximetry [ Throughout] 03/25/21 03/25/21 03/25/21 12:57 13:02 13:03 Temperature Pulse Rate 112 H 114 H 117 H Respiratory Rate Blood Pressure 135/61 Blood Pressure [Left] O2 Sat by Pulse 99 99 Oximetry O2 Sat by Pulse Oximetry [ Throughout] 03/25/21 03/25/21 03/25/21 13:07 13:12 13:17 Temperature Pulse Rate 111 H 105 H 116 H Respiratory Rate Blood Pressure Blood Pressure [Left] O2 Sat by Pulse 98 97 96 Oximetry O2 Sat by Pulse Oximetry [ Throughout] 03/25/21 03/25/21 03/25/21 13:22 13:27 13:32 Temperature Pulse Rate 109 H 115 H 105 H Respiratory Rate Blood Pressure Blood Pressure [Left] O2 Sat by Pulse 98 99 97 Oximetry O2 Sat by Pulse Oximetry [ Throughout] 03/25/21 03/25/21 03/25/21 13:37 13:42 13:47 Temperature Pulse Rate 120 H 111 H 113 H Respiratory Rate Blood Pressure Blood Pressure [Left] O2 Sat by Pulse 99 97 98 Oximetry O2 Sat by Pulse Oximetry [ Throughout] 03/25/21 03/25/21 03/25/21 13:52 13:57 14:02 Temperature Pulse Rate 109 H 111 H 106 H Respiratory Rate Blood Pressure 142/74 Blood Pressure [Left] O2 Sat by Pulse 100 99 98 Oximetry O2 Sat by Pulse Oximetry [ Throughout] 03/25/21 03/25/21 03/25/21 14:07 14:12 14:17 Temperature Pulse Rate 106 H 112 H 107 H Respiratory Rate Blood Pressure Blood Pressure [Left] O2 Sat by Pulse 99 97 100 Oximetry O2 Sat by Pulse Oximetry [ Throughout] 03/25/21 03/25/21 03/25/21 14:22 14:27 14:32 Temperature Pulse Rate 111 H 106 H 110 H Respiratory Rate Blood Pressure Blood Pressure [Left] O2 Sat by Pulse 99 98 99 Oximetry O2 Sat by Pulse Oximetry [ Throughout] 03/25/21 03/25/21 03/25/21 14:37 14:42 14:47 Temperature Pulse Rate 116 H 113 H 110 H Respiratory Rate Blood Pressure Blood Pressure [Left] O2 Sat by Pulse 98 97 97 Oximetry O2 Sat by Pulse Oximetry [ Throughout] 03/25/21 03/25/21 03/25/21 14:52 14:57 15:02 Temperature Pulse Rate 113 H 111 H 103 H Respiratory Rate Blood Pressure Blood Pressure [Left] O2 Sat by Pulse 99 98 98 Oximetry O2 Sat by Pulse Oximetry [ Throughout] 03/25/21 03/25/21 03/25/21 15:03 15:07 15:12 Temperature Pulse Rate 107 H 105 H 108 H Respiratory Rate Blood Pressure 144/68 Blood Pressure [Left] O2 Sat by Pulse 96 95 Oximetry O2 Sat by Pulse Oximetry [ Throughout] 03/25/21 03/25/21 03/25/21 15:17 15:22 15:27 Temperature 98 F Pulse Rate 105 H 111 H 112 H Respiratory 22 Rate Blood Pressure Blood Pressure [Left] O2 Sat by Pulse 97 98 98 Oximetry O2 Sat by Pulse Oximetry [ Throughout] 03/25/21 03/25/21 03/25/21 15:31 15:32 15:37 Temperature Pulse Rate 106 H 113 H 115 H Respiratory Rate Blood Pressure Blood Pressure [Left] O2 Sat by Pulse 93 98 98 Oximetry O2 Sat by Pulse Oximetry [ Throughout] 03/25/21 03/25/21 03/25/21 15:42 15:46 15:47 Temperature Pulse Rate 109 H 111 H 118 H Respiratory Rate Blood Pressure Blood Pressure [Left] O2 Sat by Pulse 99 91 99 Oximetry O2 Sat by Pulse Oximetry [ Throughout] 03/25/21 03/25/21 03/25/21 15:51 15:52 15:57 Temperature Pulse Rate 111 H 105 H 115 H Respiratory Rate Blood Pressure Blood Pressure [Left] O2 Sat by Pulse 94 98 100 Oximetry O2 Sat by Pulse Oximetry [ Throughout] 03/25/21 03/25/21 03/25/21 16:02 16:07 16:12 Temperature Pulse Rate 109 H 116 H 110 H Respiratory Rate Blood Pressure 142/64 Blood Pressure [Left] O2 Sat by Pulse 98 98 96 Oximetry O2 Sat by Pulse Oximetry [ Throughout] 03/25/21 03/25/21 03/25/21 16:17 16:22 16:25 Temperature Pulse Rate 116 H 111 H 126 H Respiratory Rate Blood Pressure Blood Pressure [Left] O2 Sat by Pulse 95 98 93 Oximetry O2 Sat by Pulse Oximetry [ Throughout] 03/25/21 16:27 Temperature 98.5 F Pulse Rate 117 H Respiratory Rate Blood Pressure Blood Pressure [Left] O2 Sat by Pulse 97 Oximetry O2 Sat by Pulse Oximetry [ Throughout] - Exam Cardiovascular: Regular rate Lungs: Normal air movement Abdomen: Present: normal appearance, soft Vulva: both: normal Uterus: Present: normal FHR: auscultation normal Uterine Contraction Monitor Mode: External Cervical Dilatation: 3.5 (AROM of forebag) Cervical Effacement Percentage: 80 station: -2 Uterine Contraction Frequency (min): 2.5-3 Uterine Contraction Duration: 60 Uterine Contraction Pattern: Regular Uterine Tone Measurement Phase: Contraction Uterine Contraction Intensity: Strong/Firm Extremities: normal Deep Tendon Reflex Grade: Normal +2 - Labs Labs: Abnormal Labs 03/24/21 03/24/21 03/24/21 13:10 13:10 18:49 MCH 25 L RDW 16.2 H Creatinine 0.5 L Uric Acid 2.8 L Magnesium 2.80 H Lactate Dehydrogenase 233 H U Epithel Cells (Auto) 03/24/21 03/25/21 03/25/21 Unknown 00:19 05:56 MCH RDW Creatinine Uric Acid Magnesium 3.60 H 3.90 H Lactate Dehydrogenase U Epithel Cells (Auto) 17.0 H Laboratory Results - last 24 hr 03/24/21 03/24/21 03/24/21 13:10 13:10 18:49 Magnesium 2.80 H Coronavirus (PCR) HIV 1&2 Antibody Rapid Non react HIV P24 Antigen Non react Blood Type B POSITIVE Antibody Screen Negative 03/25/21 03/25/21 03/25/21 00:19 05:56 08:38 Magnesium 3.60 H 3.90 H Coronavirus (PCR) Negative HIV 1&2 Antibody Rapid HIV P24 Antigen Blood Type Antibody Screen
--- NOTE | 2021-03-25 20:50 | Progress Note ---
Assessment and Plan Patient c/o feeling urge to push, SVE unchanged. IUPC placed without difficulty and working well. Encouraged pt to get epidural to help with relaxation. Discussed unknowns by not having care. efw by late third trimester u/s 8#+ - could be bigger by a pound or more (feels 8-9lbs by shirin.) first baby 7#6oz. Pt agrees to have epidural placed. Advised that an operative will be necessary if baby shows signs of distress or if she does not progress. Will reassess @ 2230 or sooner if needed. Dr. Hernandez updated. - Patient Problems (1) No care in current in third trimester Current Visit: Yes Status: Acute (2) Pre-eclampsia in third trimester Current Visit: Yes Status: Acute Plan to address problem: Continue IOL Mag sulfate 2gm/hr mag levels q6hrs strict I&O monitor for worsening s/s pre-e (3) with 39 completed weeks gestation Current Visit: Yes Status: Acute Subjective - Subjective Date of service: 03/25/21 Principal diagnosis: IUP @ 39 weeks, no care; pre-e IOL Patient reports: loss of fluid (SROM ), movement normal, contractions, no vaginal bleeding, no other (denies POWELL, visual changes or epigastric pain) Objective - Vital Signs Vital Signs: Vital Signs - 12hr 03/25/21 03/25/21 03/25/21 08:42 08:47 08:52 Temperature Pulse Rate 118 H 115 H 115 H Respiratory Rate Blood Pressure O2 Sat by Pulse 99 99 98 Oximetry 03/25/21 03/25/21 03/25/21 08:57 09:02 09:03 Temperature Pulse Rate 112 H 117 H 115 H Respiratory Rate Blood Pressure 151/67 O2 Sat by Pulse 98 99 Oximetry 03/25/21 03/25/21 03/25/21 09:07 09:12 09:17 Temperature Pulse Rate 115 H 111 H 124 H Respiratory Rate Blood Pressure O2 Sat by Pulse 97 99 98 Oximetry 03/25/21 03/25/21 03/25/21 09:22 09:27 09:32 Temperature Pulse Rate 112 H 121 H 119 H Respiratory Rate Blood Pressure O2 Sat by Pulse 97 98 99 Oximetry 03/25/21 03/25/21 03/25/21 09:37 09:42 09:47 Temperature Pulse Rate 114 H 114 H 113 H Respiratory Rate Blood Pressure O2 Sat by Pulse 98 98 97 Oximetry 03/25/21 03/25/21 03/25/21 09:52 09:57 10:02 Temperature Pulse Rate 119 H 112 H 116 H Respiratory Rate Blood Pressure 141/65 O2 Sat by Pulse 98 98 98 Oximetry 03/25/21 03/25/21 03/25/21 10:07 10:12 10:17 Temperature Pulse Rate 119 H 111 H 115 H Respiratory Rate Blood Pressure O2 Sat by Pulse 96 98 99 Oximetry 03/25/21 03/25/21 03/25/21 10:22 10:27 10:32 Temperature Pulse Rate 110 H 121 H 114 H Respiratory Rate Blood Pressure O2 Sat by Pulse 98 98 99 Oximetry 03/25/21 03/25/21 03/25/21 10:37 10:42 10:47 Temperature Pulse Rate 112 H 114 H 113 H Respiratory Rate Blood Pressure O2 Sat by Pulse 98 98 98 Oximetry 03/25/21 03/25/21 03/25/21 10:49 10:52 10:57 Temperature 98.3 F Pulse Rate 105 H 111 H 111 H Respiratory 18 Rate Blood Pressure O2 Sat by Pulse 98 98 98 Oximetry 03/25/21 03/25/21 03/25/21 11:02 11:03 11:07 Temperature Pulse Rate 110 H 111 H 109 H Respiratory Rate Blood Pressure 137/65 O2 Sat by Pulse 97 98 Oximetry 03/25/21 03/25/21 03/25/21 11:12 11:17 11:22 Temperature Pulse Rate 112 H 113 H 110 H Respiratory Rate Blood Pressure O2 Sat by Pulse 98 98 97 Oximetry 03/25/21 03/25/21 03/25/21 11:27 11:32 11:37 Temperature Pulse Rate 109 H 114 H 118 H Respiratory Rate Blood Pressure O2 Sat by Pulse 98 98 98 Oximetry 03/25/21 03/25/21 03/25/21 11:42 11:47 11:52 Temperature Pulse Rate 120 H 118 H 111 H Respiratory Rate Blood Pressure O2 Sat by Pulse 98 97 98 Oximetry 03/25/21 03/25/21 03/25/21 11:57 12:02 12:07 Temperature Pulse Rate 106 H 110 H 113 H Respiratory Rate Blood Pressure 134/63 O2 Sat by Pulse 98 99 99 Oximetry 03/25/21 03/25/21 03/25/21 12:12 12:17 12:22 Temperature Pulse Rate 108 H 106 H 118 H Respiratory Rate Blood Pressure O2 Sat by Pulse 99 98 99 Oximetry 03/25/21 03/25/21 03/25/21 12:27 12:32 12:37 Temperature Pulse Rate 113 H 114 H 112 H Respiratory Rate Blood Pressure O2 Sat by Pulse 98 96 96 Oximetry 03/25/21 03/25/21 03/25/21 12:42 12:47 12:52 Temperature Pulse Rate 112 H 118 H 112 H Respiratory Rate Blood Pressure O2 Sat by Pulse 98 99 99 Oximetry 03/25/21 03/25/21 03/25/21 12:57 13:02 13:03 Temperature Pulse Rate 112 H 114 H 117 H Respiratory Rate Blood Pressure 135/61 O2 Sat by Pulse 99 99 Oximetry 03/25/21 03/25/21 03/25/21 13:07 13:12 13:17 Temperature Pulse Rate 111 H 105 H 116 H Respiratory Rate Blood Pressure O2 Sat by Pulse 98 97 96 Oximetry 03/25/21 03/25/21 03/25/21 13:22 13:27 13:32 Temperature Pulse Rate 109 H 115 H 105 H Respiratory Rate Blood Pressure O2 Sat by Pulse 98 99 97 Oximetry 03/25/21 03/25/21 03/25/21 13:37 13:42 13:47 Temperature Pulse Rate 120 H 111 H 113 H Respiratory Rate Blood Pressure O2 Sat by Pulse 99 97 98 Oximetry 03/25/21 03/25/21 03/25/21 13:52 13:57 14:02 Temperature Pulse Rate 109 H 111 H 106 H Respiratory Rate Blood Pressure 142/74 O2 Sat by Pulse 100 99 98 Oximetry 03/25/21 03/25/21 03/25/21 14:07 14:12 14:17 Temperature Pulse Rate 106 H 112 H 107 H Respiratory Rate Blood Pressure O2 Sat by Pulse 99 97 100 Oximetry 03/25/21 03/25/21 03/25/21 14:22 14:27 14:32 Temperature Pulse Rate 111 H 106 H 110 H Respiratory Rate Blood Pressure O2 Sat by Pulse 99 98 99 Oximetry 03/25/21 03/25/21 03/25/21 14:37 14:42 14:47 Temperature Pulse Rate 116 H 113 H 110 H Respiratory Rate Blood Pressure O2 Sat by Pulse 98 97 97 Oximetry 03/25/21 03/25/21 03/25/21 14:52 14:57 15:02 Temperature Pulse Rate 113 H 111 H 103 H Respiratory Rate Blood Pressure O2 Sat by Pulse 99 98 98 Oximetry 03/25/21 03/25/21 03/25/21 15:03 15:07 15:12 Temperature Pulse Rate 107 H 105 H 108 H Respiratory Rate Blood Pressure 144/68 O2 Sat by Pulse 96 95 Oximetry 03/25/21 03/25/21 03/25/21 15:17 15:22 15:27 Temperature 98 F Pulse Rate 105 H 111 H 112 H Respiratory 22 Rate Blood Pressure O2 Sat by Pulse 97 98 98 Oximetry 03/25/21 03/25/21 03/25/21 15:31 15:32 15:37 Temperature Pulse Rate 106 H 113 H 115 H Respiratory Rate Blood Pressure O2 Sat by Pulse 93 98 98 Oximetry 03/25/21 03/25/21 03/25/21 15:42 15:46 15:47 Temperature Pulse Rate 109 H 111 H 118 H Respiratory Rate Blood Pressure O2 Sat by Pulse 99 91 99 Oximetry 03/25/21 03/25/21 03/25/21 15:51 15:52 15:57 Temperature Pulse Rate 111 H 105 H 115 H Respiratory Rate Blood Pressure O2 Sat by Pulse 94 98 100 Oximetry 03/25/21 03/25/21 03/25/21 16:02 16:07 16:12 Temperature Pulse Rate 109 H 116 H 110 H Respiratory Rate Blood Pressure 142/64 O2 Sat by Pulse 98 98 96 Oximetry 03/25/21 03/25/21 03/25/21 16:17 16:22 16:25 Temperature Pulse Rate 116 H 111 H 126 H Respiratory Rate Blood Pressure O2 Sat by Pulse 95 98 93 Oximetry 03/25/21 03/25/21 03/25/21 16:27 16:32 16:37 Temperature 98.5 F Pulse Rate 117 H 121 H 114 H Respiratory Rate Blood Pressure O2 Sat by Pulse 97 98 98 Oximetry 03/25/21 03/25/21 03/25/21 16:42 16:47 16:52 Temperature Pulse Rate 111 H 111 H 111 H Respiratory Rate Blood Pressure O2 Sat by Pulse 98 96 97 Oximetry 03/25/21 03/25/21 03/25/21 16:57 17:02 17:03 Temperature Pulse Rate 112 H 111 H 113 H Respiratory Rate Blood Pressure 140/80 O2 Sat by Pulse 96 97 Oximetry 03/25/21 03/25/21 03/25/21 17:07 17:12 17:17 Temperature Pulse Rate 112 H 110 H 122 H Respiratory Rate Blood Pressure O2 Sat by Pulse 97 94 99 Oximetry 03/25/21 03/25/21 03/25/21 17:22 17:27 17:32 Temperature Pulse Rate 118 H 121 H 119 H Respiratory Rate Blood Pressure O2 Sat by Pulse 98 97 97 Oximetry 03/25/21 03/25/21 03/25/21 17:37 17:42 17:47 Temperature Pulse Rate 122 H 121 H 116 H Respiratory Rate Blood Pressure O2 Sat by Pulse 97 97 97 Oximetry 03/25/21 03/25/21 03/25/21 17:52 17:57 18:02 Temperature Pulse Rate 120 H 118 H 118 H Respiratory Rate Blood Pressure 135/71 O2 Sat by Pulse 98 99 97 Oximetry 03/25/21 03/25/21 03/25/21 18:07 18:12 18:17 Temperature Pulse Rate 121 H 122 H 118 H Respiratory Rate Blood Pressure O2 Sat by Pulse 96 98 98 Oximetry 03/25/21 03/25/21 03/25/21 18:22 18:27 18:32 Temperature Pulse Rate 121 H 116 H 124 H Respiratory Rate Blood Pressure O2 Sat by Pulse 98 98 98 Oximetry 03/25/21 03/25/21 03/25/21 18:37 18:42 18:47 Temperature Pulse Rate 120 H 121 H 122 H Respiratory Rate Blood Pressure O2 Sat by Pulse 99 99 98 Oximetry 03/25/21 03/25/21 03/25/21 18:52 18:57 19:02 Temperature Pulse Rate 128 H 123 H 118 H Respiratory Rate Blood Pressure 136/71 O2 Sat by Pulse 97 98 98 Oximetry 03/25/21 03/25/21 03/25/21 19:07 19:11 19:12 Temperature Pulse Rate 118 H 118 H 119 H Respiratory Rate Blood Pressure 139/71 O2 Sat by Pulse 98 98 Oximetry 03/25/21 03/25/21 03/25/21 19:13 19:17 19:22 Temperature 98.2 F Pulse Rate 119 H 124 H Respiratory Rate Blood Pressure O2 Sat by Pulse 99 98 Oximetry 03/25/21 03/25/21 03/25/21 19:27 19:32 19:37 Temperature Pulse Rate 119 H 117 H 116 H Respiratory Rate Blood Pressure O2 Sat by Pulse 96 97 97 Oximetry 03/25/21 03/25/21 03/25/21 19:42 19:47 19:52 Temperature Pulse Rate 114 H 121 H 116 H Respiratory Rate Blood Pressure O2 Sat by Pulse 97 97 98 Oximetry 03/25/21 03/25/21 03/25/21 19:57 20:02 20:07 Temperature Pulse Rate 123 H 121 H 125 H Respiratory Rate Blood Pressure 136/66 O2 Sat by Pulse 99 97 99 Oximetry 03/25/21 03/25/21 03/25/21 20:12 20:17 20:22 Temperature Pulse Rate 123 H 124 H 122 H Respiratory Rate Blood Pressure O2 Sat by Pulse 98 99 99 Oximetry 03/25/21 03/25/21 20:27 20:32 Temperature Pulse Rate 122 H 119 H Respiratory Rate Blood Pressure O2 Sat by Pulse 97 97 Oximetry - Exam Cardiovascular: Regular rate Lungs: Normal air movement Abdomen: Present: normal appearance, soft Vulva: both: normal Uterus: Present: normal, fundal height above umbilicus FHR: category 1 Uterine Contraction Monitor Mode: Internal Cervical Dilatation: 6 Cervical Effacement Percentage: 80 station: -1 Uterine Contraction Frequency (min): 2-3 Uterine Contraction Duration: 60 Uterine Contraction Pattern: Regular Uterine Tone Measurement Phase: Contraction Uterine Contraction Intensity: Strong/Firm Extremities: normal - Labs Labs: Abnormal Labs 03/24/21 03/24/21 03/24/21 13:10 13:10 18:49 MCH 25 L RDW 16.2 H Creatinine 0.5 L Uric Acid 2.8 L Magnesium 2.80 H Lactate Dehydrogenase 233 H U Epithel Cells (Auto) 03/24/21 03/25/21 03/25/21 Unknown 00:19 05:56 MCH RDW Creatinine Uric Acid Magnesium 3.60 H 3.90 H Lactate Dehydrogenase U Epithel Cells (Auto) 17.0 H 03/25/21 16:39 MCH RDW Creatinine Uric Acid Magnesium 4.10 H Lactate Dehydrogenase U Epithel Cells (Auto) Laboratory Results - last 24 hr 03/24/21 03/25/21 03/25/21 13:10 00:19 05:56 Magnesium 3.60 H 3.90 H Coronavirus (PCR) Blood Type B POSITIVE Antibody Screen Negative 03/25/21 03/25/21 08:38 16:39 Magnesium 4.10 H Coronavirus (PCR) Negative Blood Type Antibody Screen
--- NOTE | 2021-03-25 21:51 | Progress Note ---
Labor Epidural - Labor Epidural Start Time: 21:39 Stop Time: 21:43 Performed by:: BIN BENAVIDEZ Procedure: Patient is requesting epidural for labor pain. H&P, and labs reviewed. Procedure explained, questions answered, consent obtained. Patient in sitting position with blood pressure cuff and pulse ox on and working. Timeout performed immediately before start of procedure. Sterile Duraprep prep/drape. 3 mL 1% lidocaine skin wheal at L[3]-L[4]. 17-gauge tuohy epidural needle advanced to [id number] with saline at [7] cm. 25-gauge spinal needle advanced until clear, free-flowing CSF. Intrathecal dexmedetomidine [5] mcg administered and needle removed. Epidural catheter advanced to [12] cm, negative aspiration for blood and csf, negative test dose 3 ml 1.5% lidocaine with epinephrine. Sterile sponge and tegaderm applied, followed by tape reinforcement. Patient tolerated procedure well.
[2021-03-25] MEDS ORDERED: BICITRA ORAL LIQD 30ML PO ONE (22:12)
[2021-03-25] MEDS ORDERED: FAMOTIDINE 20 MG/2 ML INJ IV ONE (22:12)
[2021-03-25] MEDS ORDERED: LACTATED RINGERS 1,000 ML IV SCH (22:15)
--- NOTE | 2021-03-25 22:19 | Progress Note ---
Assessment and Plan patient comfortable s/p epidural, called by rn d/t bloody amniotic fluid. chucks and towels saturated with bloody fluid, no change in SVE. Dr. Hernandez notified, decision to proceed with c/s. pre-e op orders in EMR. - Patient Problems (1) No care in current in third trimester Current Visit: Yes Status: Acute (2) Pre-eclampsia in third trimester Current Visit: Yes Status: Acute (3) with 39 completed weeks gestation Current Visit: Yes Status: Acute Subjective - Subjective Date of service: 03/25/21 Principal diagnosis: IUP @ 39 weeks, no care; pre-e IOL Patient reports: new complaints, loss of fluid (SROM - now bloody fluid), no vaginal bleeding, no other (denies POWELL, visual changes or epigastric pain) Objective - Vital Signs Vital Signs: Vital Signs - 12hr 03/25/21 03/25/21 03/25/21 10:17 10:22 10:27 Temperature Pulse Rate 115 H 110 H 121 H Respiratory Rate Blood Pressure O2 Sat by Pulse 99 98 98 Oximetry O2 Sat by Pulse Oximetry [ Throughout] 03/25/21 03/25/21 03/25/21 10:32 10:37 10:42 Temperature Pulse Rate 114 H 112 H 114 H Respiratory Rate Blood Pressure O2 Sat by Pulse 99 98 98 Oximetry O2 Sat by Pulse Oximetry [ Throughout] 03/25/21 03/25/21 03/25/21 10:47 10:49 10:52 Temperature 98.3 F Pulse Rate 113 H 105 H 111 H Respiratory 18 Rate Blood Pressure O2 Sat by Pulse 98 98 98 Oximetry O2 Sat by Pulse Oximetry [ Throughout] 03/25/21 03/25/21 03/25/21 10:57 11:02 11:03 Temperature Pulse Rate 111 H 110 H 111 H Respiratory Rate Blood Pressure 137/65 O2 Sat by Pulse 98 97 Oximetry O2 Sat by Pulse Oximetry [ Throughout] 03/25/21 03/25/21 03/25/21 11:07 11:12 11:17 Temperature Pulse Rate 109 H 112 H 113 H Respiratory Rate Blood Pressure O2 Sat by Pulse 98 98 98 Oximetry O2 Sat by Pulse Oximetry [ Throughout] 03/25/21 03/25/21 03/25/21 11:22 11:27 11:32 Temperature Pulse Rate 110 H 109 H 114 H Respiratory Rate Blood Pressure O2 Sat by Pulse 97 98 98 Oximetry O2 Sat by Pulse Oximetry [ Throughout] 03/25/21 03/25/21 03/25/21 11:37 11:42 11:47 Temperature Pulse Rate 118 H 120 H 118 H Respiratory Rate Blood Pressure O2 Sat by Pulse 98 98 97 Oximetry O2 Sat by Pulse Oximetry [ Throughout] 03/25/21 03/25/21 03/25/21 11:52 11:57 12:02 Temperature Pulse Rate 111 H 106 H 110 H Respiratory Rate Blood Pressure 134/63 O2 Sat by Pulse 98 98 99 Oximetry O2 Sat by Pulse Oximetry [ Throughout] 03/25/21 03/25/21 03/25/21 12:07 12:12 12:17 Temperature Pulse Rate 113 H 108 H 106 H Respiratory Rate Blood Pressure O2 Sat by Pulse 99 99 98 Oximetry O2 Sat by Pulse Oximetry [ Throughout] 03/25/21 03/25/21 03/25/21 12:22 12:27 12:32 Temperature Pulse Rate 118 H 113 H 114 H Respiratory Rate Blood Pressure O2 Sat by Pulse 99 98 96 Oximetry O2 Sat by Pulse Oximetry [ Throughout] 03/25/21 03/25/21 03/25/21 12:37 12:42 12:47 Temperature Pulse Rate 112 H 112 H 118 H Respiratory Rate Blood Pressure O2 Sat by Pulse 96 98 99 Oximetry O2 Sat by Pulse Oximetry [ Throughout] 03/25/21 03/25/21 03/25/21 12:52 12:57 13:02 Temperature Pulse Rate 112 H 112 H 114 H Respiratory Rate Blood Pressure O2 Sat by Pulse 99 99 99 Oximetry O2 Sat by Pulse Oximetry [ Throughout] 03/25/21 03/25/21 03/25/21 13:03 13:07 13:12 Temperature Pulse Rate 117 H 111 H 105 H Respiratory Rate Blood Pressure 135/61 O2 Sat by Pulse 98 97 Oximetry O2 Sat by Pulse Oximetry [ Throughout] 03/25/21 03/25/21 03/25/21 13:17 13:22 13:27 Temperature Pulse Rate 116 H 109 H 115 H Respiratory Rate Blood Pressure O2 Sat by Pulse 96 98 99 Oximetry O2 Sat by Pulse Oximetry [ Throughout] 03/25/21 03/25/21 03/25/21 13:32 13:37 13:42 Temperature Pulse Rate 105 H 120 H 111 H Respiratory Rate Blood Pressure O2 Sat by Pulse 97 99 97 Oximetry O2 Sat by Pulse Oximetry [ Throughout] 03/25/21 03/25/21 03/25/21 13:47 13:52 13:57 Temperature Pulse Rate 113 H 109 H 111 H Respiratory Rate Blood Pressure O2 Sat by Pulse 98 100 99 Oximetry O2 Sat by Pulse Oximetry [ Throughout] 03/25/21 03/25/21 03/25/21 14:02 14:07 14:12 Temperature Pulse Rate 106 H 106 H 112 H Respiratory Rate Blood Pressure 142/74 O2 Sat by Pulse 98 99 97 Oximetry O2 Sat by Pulse Oximetry [ Throughout] 03/25/21 03/25/21 03/25/21 14:17 14:22 14:27 Temperature Pulse Rate 107 H 111 H 106 H Respiratory Rate Blood Pressure O2 Sat by Pulse 100 99 98 Oximetry O2 Sat by Pulse Oximetry [ Throughout] 03/25/21 03/25/21 03/25/21 14:32 14:37 14:42 Temperature Pulse Rate 110 H 116 H 113 H Respiratory Rate Blood Pressure O2 Sat by Pulse 99 98 97 Oximetry O2 Sat by Pulse Oximetry [ Throughout] 03/25/21 03/25/21 03/25/21 14:47 14:52 14:57 Temperature Pulse Rate 110 H 113 H 111 H Respiratory Rate Blood Pressure O2 Sat by Pulse 97 99 98 Oximetry O2 Sat by Pulse Oximetry [ Throughout] 03/25/21 03/25/21 03/25/21 15:02 15:03 15:07 Temperature Pulse Rate 103 H 107 H 105 H Respiratory Rate Blood Pressure 144/68 O2 Sat by Pulse 98 96 Oximetry O2 Sat by Pulse Oximetry [ Throughout] 03/25/21 03/25/21 03/25/21 15:12 15:17 15:22 Temperature 98 F Pulse Rate 108 H 105 H 111 H Respiratory 22 Rate Blood Pressure O2 Sat by Pulse 95 97 98 Oximetry O2 Sat by Pulse Oximetry [ Throughout] 03/25/21 03/25/21 03/25/21 15:27 15:31 15:32 Temperature Pulse Rate 112 H 106 H 113 H Respiratory Rate Blood Pressure O2 Sat by Pulse 98 93 98 Oximetry O2 Sat by Pulse Oximetry [ Throughout] 03/25/21 03/25/21 03/25/21 15:37 15:42 15:46 Temperature Pulse Rate 115 H 109 H 111 H Respiratory Rate Blood Pressure O2 Sat by Pulse 98 99 91 Oximetry O2 Sat by Pulse Oximetry [ Throughout] 03/25/21 03/25/21 03/25/21 15:47 15:51 15:52 Temperature Pulse Rate 118 H 111 H 105 H Respiratory Rate Blood Pressure O2 Sat by Pulse 99 94 98 Oximetry O2 Sat by Pulse Oximetry [ Throughout] 03/25/21 03/25/21 03/25/21 15:57 16:02 16:07 Temperature Pulse Rate 115 H 109 H 116 H Respiratory Rate Blood Pressure 142/64 O2 Sat by Pulse 100 98 98 Oximetry O2 Sat by Pulse Oximetry [ Throughout] 03/25/21 03/25/21 03/25/21 16:12 16:17 16:22 Temperature Pulse Rate 110 H 116 H 111 H Respiratory Rate Blood Pressure O2 Sat by Pulse 96 95 98 Oximetry O2 Sat by Pulse Oximetry [ Throughout] 03/25/21 03/25/21 03/25/21 16:25 16:27 16:32 Temperature 98.5 F Pulse Rate 126 H 117 H 121 H Respiratory Rate Blood Pressure O2 Sat by Pulse 93 97 98 Oximetry O2 Sat by Pulse Oximetry [ Throughout] 03/25/21 03/25/21 03/25/21 16:37 16:42 16:47 Temperature Pulse Rate 114 H 111 H 111 H Respiratory Rate Blood Pressure O2 Sat by Pulse 98 98 96 Oximetry O2 Sat by Pulse Oximetry [ Throughout] 03/25/21 03/25/21 03/25/21 16:52 16:57 17:02 Temperature Pulse Rate 111 H 112 H 111 H Respiratory Rate Blood Pressure O2 Sat by Pulse 97 96 97 Oximetry O2 Sat by Pulse Oximetry [ Throughout] 03/25/21 03/25/21 03/25/21 17:03 17:07 17:12 Temperature Pulse Rate 113 H 112 H 110 H Respiratory Rate Blood Pressure 140/80 O2 Sat by Pulse 97 94 Oximetry O2 Sat by Pulse Oximetry [ Throughout] 03/25/21 03/25/21 03/25/21 17:17 17:22 17:27 Temperature Pulse Rate 122 H 118 H 121 H Respiratory Rate Blood Pressure O2 Sat by Pulse 99 98 97 Oximetry O2 Sat by Pulse Oximetry [ Throughout] 03/25/21 03/25/21 03/25/21 17:32 17:37 17:42 Temperature Pulse Rate 119 H 122 H 121 H Respiratory Rate Blood Pressure O2 Sat by Pulse 97 97 97 Oximetry O2 Sat by Pulse Oximetry [ Throughout] 03/25/21 03/25/21 03/25/21 17:47 17:52 17:57 Temperature Pulse Rate 116 H 120 H 118 H Respiratory Rate Blood Pressure O2 Sat by Pulse 97 98 99 Oximetry O2 Sat by Pulse Oximetry [ Throughout] 03/25/21 03/25/21 03/25/21 18:02 18:07 18:12 Temperature Pulse Rate 118 H 121 H 122 H Respiratory Rate Blood Pressure 135/71 O2 Sat by Pulse 97 96 98 Oximetry O2 Sat by Pulse Oximetry [ Throughout] 03/25/21 03/25/21 03/25/21 18:17 18:22 18:27 Temperature Pulse Rate 118 H 121 H 116 H Respiratory Rate Blood Pressure O2 Sat by Pulse 98 98 98 Oximetry O2 Sat by Pulse Oximetry [ Throughout] 03/25/21 03/25/21 03/25/21 18:32 18:37 18:42 Temperature Pulse Rate 124 H 120 H 121 H Respiratory Rate Blood Pressure O2 Sat by Pulse 98 99 99 Oximetry O2 Sat by Pulse Oximetry [ Throughout] 03/25/21 03/25/21 03/25/21 18:47 18:52 18:57 Temperature Pulse Rate 122 H 128 H 123 H Respiratory Rate Blood Pressure O2 Sat by Pulse 98 97 98 Oximetry O2 Sat by Pulse Oximetry [ Throughout] 03/25/21 03/25/21 03/25/21 19:02 19:07 19:11 Temperature Pulse Rate 118 H 118 H 118 H Respiratory Rate Blood Pressure 136/71 139/71 O2 Sat by Pulse 98 98 Oximetry O2 Sat by Pulse Oximetry [ Throughout] 03/25/21 03/25/21 03/25/21 19:12 19:13 19:17 Temperature 98.2 F Pulse Rate 119 H 119 H Respiratory Rate Blood Pressure O2 Sat by Pulse 98 99 Oximetry O2 Sat by Pulse Oximetry [ Throughout] 03/25/21 03/25/21 03/25/21 19:22 19:27 19:32 Temperature Pulse Rate 124 H 119 H 117 H Respiratory Rate Blood Pressure O2 Sat by Pulse 98 96 97 Oximetry O2 Sat by Pulse Oximetry [ Throughout] 03/25/21 03/25/21 03/25/21 19:37 19:42 19:47 Temperature Pulse Rate 116 H 114 H 121 H Respiratory Rate Blood Pressure O2 Sat by Pulse 97 97 97 Oximetry O2 Sat by Pulse Oximetry [ Throughout] 03/25/21 03/25/21 03/25/21 19:52 19:57 20:02 Temperature Pulse Rate 116 H 123 H 121 H Respiratory Rate Blood Pressure 136/66 O2 Sat by Pulse 98 99 97 Oximetry O2 Sat by Pulse Oximetry [ Throughout] 03/25/21 03/25/21 03/25/21 20:07 20:12 20:17 Temperature Pulse Rate 125 H 123 H 124 H Respiratory Rate Blood Pressure O2 Sat by Pulse 99 98 99 Oximetry O2 Sat by Pulse Oximetry [ Throughout] 03/25/21 03/25/21 03/25/21 20:22 20:27 20:32 Temperature Pulse Rate 122 H 122 H 119 H Respiratory Rate Blood Pressure O2 Sat by Pulse 99 97 97 Oximetry O2 Sat by Pulse Oximetry [ Throughout] 03/25/21 03/25/21 03/25/21 20:37 20:42 20:47 Temperature Pulse Rate 116 H 116 H 121 H Respiratory Rate Blood Pressure O2 Sat by Pulse 98 98 98 Oximetry O2 Sat by Pulse Oximetry [ Throughout] 03/25/21 03/25/21 03/25/21 20:52 20:57 21:00 Temperature 98.3 F Pulse Rate 111 H 106 H Respiratory Rate Blood Pressure O2 Sat by Pulse 100 100 Oximetry O2 Sat by Pulse 100 Oximetry [ Throughout] 03/25/21 03/25/21 03/25/21 21:02 21:07 21:12 Temperature Pulse Rate 107 H 108 H 106 H Respiratory Rate Blood Pressure 132/67 O2 Sat by Pulse 100 100 100 Oximetry O2 Sat by Pulse Oximetry [ Throughout] 03/25/21 03/25/21 03/25/21 21:17 21:22 21:27 Temperature Pulse Rate 102 H 111 H 101 H Respiratory Rate Blood Pressure O2 Sat by Pulse 100 100 99 Oximetry O2 Sat by Pulse Oximetry [ Throughout] 03/25/21 03/25/21 03/25/21 21:32 21:37 21:42 Temperature Pulse Rate 116 H 119 H 119 H Respiratory Rate Blood Pressure 144/82 O2 Sat by Pulse 100 100 99 Oximetry O2 Sat by Pulse Oximetry [ Throughout] 03/25/21 03/25/21 03/25/21 21:44 21:47 21:48 Temperature Pulse Rate 118 H 134 H 136 H Respiratory Rate Blood Pressure 145/77 144/77 148/67 O2 Sat by Pulse 99 Oximetry O2 Sat by Pulse Oximetry [ Throughout] 03/25/21 03/25/21 03/25/21 21:52 21:56 21:57 Temperature Pulse Rate 137 H 127 H 119 H Respiratory Rate Blood Pressure 103/47 O2 Sat by Pulse 99 98 Oximetry O2 Sat by Pulse Oximetry [ Throughout] 03/25/21 03/25/21 03/25/21 22:01 22:02 22:07 Temperature Pulse Rate 121 H 120 H 112 H Respiratory Rate Blood Pressure 96/46 O2 Sat by Pulse 98 98 Oximetry O2 Sat by Pulse Oximetry [ Throughout] 03/25/21 03/25/21 03/25/21 22:08 22:11 22:12 Temperature Pulse Rate 111 H 120 H 125 H Respiratory Rate Blood Pressure 108/54 114/48 O2 Sat by Pulse 98 Oximetry O2 Sat by Pulse Oximetry [ Throughout] - Exam Lungs: Normal air movement Abdomen: Present: normal appearance, soft Vulva: both: normal Uterus: Present: normal, fundal height above umbilicus FHR: category 2 Uterine Contraction Monitor Mode: Internal Cervical Dilatation: 6 Cervical Effacement Percentage: 80 station: -2 Uterine Contraction Frequency (min): 4-6 Uterine Contraction Pattern: Irregular Uterine Tone Measurement Phase: Contraction Uterine Contraction Intensity: Mild - Labs Labs: Abnormal Labs 03/24/21 03/24/21 03/24/21 13:10 13:10 18:49 MCH 25 L RDW 16.2 H Creatinine 0.5 L Uric Acid 2.8 L Magnesium 2.80 H Lactate Dehydrogenase 233 H U Epithel Cells (Auto) 03/24/21 03/25/21 03/25/21 Unknown 00:19 05:56 MCH RDW Creatinine Uric Acid Magnesium 3.60 H 3.90 H Lactate Dehydrogenase U Epithel Cells (Auto) 17.0 H 03/25/21 16:39 MCH RDW Creatinine Uric Acid Magnesium 4.10 H Lactate Dehydrogenase U Epithel Cells (Auto) Laboratory Results - last 24 hr 03/24/21 03/25/21 03/25/21 13:10 00:19 05:56 Magnesium 3.60 H 3.90 H Coronavirus (PCR) Blood Type B POSITIVE Antibody Screen Negative 03/25/21 03/25/21 08:38 16:39 Magnesium 4.10 H Coronavirus (PCR) Negative Blood Type Antibody Screen
[2021-03-25] MEDS ORDERED: ceFAZolin/Water 2 GM/20 ML 2 GM/20 ML SYRINGE IV NR (23:00)
[2021-03-25] MEDS ORDERED: METOCLOPRAMIDE 10 MG/2 ML INJ IV ONE (23:12)
[2021-03-25] MEDS ORDERED: WATER FOR IRRIG STERILE 1,500 ML BOTTLE IR ONE (23:46)
[2021-03-25] MEDS ORDERED: SODIUM CHLORIDE 0.9% IRR 1,500 ML BOTTLE IR ONE (23:46)
[2021-03-26] MEDS ORDERED: LIDOCAINE 2%/EPINEPHRINE 1:200,000 VIAL (20 ML) INFILTRATI ONE (00:15)
[2021-03-26] MEDS ORDERED: SODIUM BICARB 8.4% 50 MEQ/50 ML VIAL IV ONE (00:15)
[2021-03-26] MEDS ORDERED: BUPIVACAINE/PF (0.25%) 2.5 MG/ML 30 ML VIAL INFILTRATI ONE (00:15)
[2021-03-26] MEDS ORDERED: dexAMETHasone 20 MG/5 ML VIAL ONE (00:15)
[2021-03-26] MEDS ORDERED: KETOROLAC 30 MG/1 ML INJ ONE (00:15)
--- NOTE | 2021-03-26 00:38 | Operative Report ---
Operative Report Operative Report: Date of procedure: 03/25/2021 Pre-operative diagnosis: 38 weeks gestation No care Failure to progress Post-operative diagnosis: Same plus nuchal cord x1 Procedure name(s): Primary low transverse section via Pfannenstiel skin incision Surgeon: Dr. Hernandez Lead Military Analyst: MERE Anesthesia: Epidural QBL: 1905ml EBL 900ml Urine output: 50 cc of clear urine out at end of procedure Fluids: 1 L Findings: Liveborn female infant weight 8 pounds 15 ounces Apgars of 7 and 9 at 1 and 5 minutes. Grossly normal fallopian tubes and ovaries bilaterally. Normal uterus. Nuchal cord x1 that was easily reduced prior to delivery of head Indications: Patient presented to triage having had no care with spontaneous rupture membranes. Patient was also noted to have elevated blood pressures and was given a diagnosis of preeclampsia. Patient underwent induction of labor and progressed to approximately 5 cm without cervical jacket changer several hours with adequate contractions. Decision was made at this time to proceed with primary section. All risk benefits and alternatives were discussed with the patient. Consents were signed and placed on the chart. Procedure: Patient was taking to the operating room. Patient was then prepped and draped in sterile fashion after anesthesia was found to be adequate. A low transverse skin incision was made with the scalpel and carried down to the underlying layer of fascia with the Bovie. The fascia was then incised in the midline and this incision was extended bilaterally with the Bovie. The superior aspect of the fascia was grasped with Dylon clamps tented upward and dissected off of the anterior rectus muscles with the scalpel. In similar fashion the inferior aspect of the fascia was grasped with Dylon clamps tented upward and dissected off of the anterior rectus muscles. The rectus muscles were then bluntly divided in the midline. The peritoneum was identified and entered into sharply. The Horacio retractor was placed. The bladder blade was placed. The bladder flap was created using the Metzenbaum scissors. The bladder blade was replaced. A lower transverse uterine incision was made with the scalpel and extended bilaterally with blunt dissection. Artificial rupture of membranes was performed yielding [clear amniotic fluid]. Nuchal cord x1 was noted and easily reduced. The 's head was then delivered atraumatically. The anterior shoulder and rest of infant delivered without difficulty. The umbilical cord was clamped x2. The cord was cut. The was then placed in sterile bassinet. The placenta was manually extracted in its entirety. The uterus was exteriorized and cleared of all clots and debris. The uterine incision was closed using 0 Vicryl in a running locking fashion. A second imbricating layer of the same suture was then created. The posterior cul-de-sac was copiously irrigated. The uterus was returned to the abdomen. The gutters were also irrigated. The anterior rectus muscles were reapproximated using 3-0 Vicryl. The anterior rectus fascia was reapproximated using 0 Vicryl in a running fashion. The subcuticular fat was reapproximated using 2-0 Vicryl in a running fashion. The skin was reapproximated with 4-0 Monocryl in a subcuticular stitch. The patient tolerated the procedure well. Sponge lap and needle counts were all correct x3. Patient was taken to the recovery room awake and in stable condition.
[2021-03-26] MEDS ORDERED: WITCH HAZEL/ GLYCERIN PAD TP PRN (00:41)
[2021-03-26] MEDS ORDERED: NALOXONE 0.4 MG/1 ML INJ IV PRN (00:41)
[2021-03-26] MEDS ORDERED: KETOROLAC 30 MG/1 ML INJ IV PRN ×2 (00:41)
[2021-03-26] MEDS ORDERED: LANOLIN/ZINC/DIMETHICONE (LANSINOH) 7 GM TP PRN (00:41)
[2021-03-26] MEDS ORDERED: MORPHINE 4 MG/1 ML INJ IV PRN (00:43)
[2021-03-26] MEDS: LACTATED RINGERS 1,000 ML IV SCH ×2 (02:50→21:41)
[2021-03-26] MEDS: MAGNESIUM SULFATE 40GM/1000ML 40 GM/1,000 ML BAG IV SCH ×2 (02:50→19:42)
--- NOTE | 2021-03-26 09:43 | Progress Note ---
Assessment and Plan - Patient Problems (1) Status post primary low transverse section Current Visit: Yes Status: Acute Plan to address problem: -routine post/op pp care -clear diet for now while on the mag, will ADAT once off (2) No care in current in third trimester Current Visit: Yes Status: Acute (3) Pre-eclampsia in third trimester Current Visit: Yes Status: Acute Plan to address problem: MgSO4 x 24 hours -no bp meds at this time. Will start of persistently in sever ranges Subjective - Subjective Date of service: 03/26/21 Principal diagnosis: POD#1 s/p 1LTCS 2)NO PNC 3)PRE-E Interval history: Pt states she is doing well and pain is well controlled. Findings of surgery d/w. I d/w need for magnesium x 24hrs as well as need to monitor h/h as she had large EBL due to atony caused by the magnesium post op. Pt currently in IV pitocin and bleeding is well controlled. All questions were addressed and answered. Patient reports: appetite normal, voiding normally, pain well controlled : doing well Objective - Vital Signs Latest vital signs: Vital Signs Temp Pulse Resp BP BP Pulse Ox Pulse Ox 03/26/21 09:37 112 H 99 03/26/21 09:32 111 H 99 03/26/21 09:27 106 H 98 03/26/21 09:22 103 H 98 03/26/21 09:17 106 H 99 03/26/21 09:12 105 H 99 03/26/21 09:11 101 H 153/69 03/26/21 09:07 108 H 99 03/26/21 09:02 107 H 98 03/26/21 08:57 101 H 98 03/26/21 08:52 104 H 98 03/26/21 08:47 104 H 99 03/26/21 08:42 103 H 98 03/26/21 08:41 105 H 143/78 03/26/21 08:37 104 H 98 03/26/21 08:32 102 H 97 03/26/21 08:27 104 H 98 03/26/21 08:22 106 H 98 03/26/21 08:17 101 H 98 03/26/21 08:14 103 H 151/66 03/26/21 08:13 99.3 F 16 151/66 98 03/26/21 08:12 107 H 97 03/26/21 08:11 105 H 148/64 03/26/21 08:07 104 H 99 03/26/21 08:02 110 H 98 03/26/21 07:57 108 H 98 03/26/21 07:52 104 H 98 03/26/21 07:47 102 H 98 03/26/21 07:42 106 H 99 03/26/21 07:41 108 H 143/65 03/26/21 07:37 108 H 97 03/26/21 07:32 97 H 97 03/26/21 07:27 98 H 97 03/26/21 07:22 102 H 97 03/26/21 07:17 98 H 98 03/26/21 07:12 105 H 96 03/26/21 07:11 102 H 137/62 03/26/21 07:07 97 H 98 03/26/21 07:02 102 H 98 03/26/21 06:57 101 H 97 03/26/21 06:52 99 H 97 03/26/21 06:47 100 H 98 03/26/21 06:42 104 H 98 03/26/21 06:41 104 H 141/72 03/26/21 06:37 109 H 99 03/26/21 06:32 107 H 99 03/26/21 06:27 108 H 100 03/26/21 06:22 107 H 99 03/26/21 06:17 106 H 99 03/26/21 06:12 104 H 99 03/26/21 06:11 103 H 142/71 03/26/21 06:07 102 H 98 03/26/21 06:02 102 H 98 03/26/21 05:57 101 H 99 03/26/21 05:52 102 H 99 03/26/21 05:47 99 H 99 03/26/21 05:42 100 H 99 03/26/21 05:41 100 H 144/74 03/26/21 05:37 98 H 99 03/26/21 05:32 100 H 99 03/26/21 05:27 101 H 99 03/26/21 05:22 102 H 98 03/26/21 05:17 100 H 98 03/26/21 05:12 100 H 99 03/26/21 05:11 102 H 149/65 03/26/21 05:07 104 H 99 03/26/21 05:02 101 H 100 03/26/21 04:57 107 H 99 03/26/21 04:52 105 H 98 03/26/21 04:47 104 H 98 03/26/21 04:42 101 H 100 03/26/21 04:40 96 H 128/60 03/26/21 04:37 100 H 99 03/26/21 04:32 100 H 100 03/26/21 04:27 95 H 99 03/26/21 04:22 103 H 97 03/26/21 04:17 95 H 98 03/26/21 04:12 96 H 98 03/26/21 04:10 97 H 130/58 03/26/21 04:07 95 H 98 03/26/21 04:02 95 H 100 03/26/21 03:57 95 H 98 03/26/21 03:52 94 H 98 03/26/21 03:47 104 H 100 03/26/21 03:42 96 H 98 03/26/21 03:41 93 H 127/58 03/26/21 03:37 96 H 98 03/26/21 03:32 95 H 98 03/26/21 03:27 96 H 98 03/26/21 03:22 94 H 98 03/26/21 03:17 97 H 98 03/26/21 03:12 102 H 97 03/26/21 03:10 102 H 123/59 03/26/21 03:07 104 H 99 03/26/21 03:02 96 H 98 03/26/21 02:57 97 H 98 03/26/21 02:52 99 H 99 03/26/21 02:47 98 H 100 03/26/21 02:42 105 H 100 03/26/21 02:37 99 H 100 03/26/21 02:32 98 H 100 03/26/21 02:00 98.3 F 94 H 22 141/72 99 03/26/21 01:43 97 H 21 134/72 100 03/26/21 01:28 95 H 22 134/66 98 03/26/21 01:13 97 H 22 132/63 97 03/26/21 00:58 96 H 125/53 99 03/26/21 00:53 98.3 F 95 H 16 123/55 96 03/26/21 00:48 98.3 F 96 H 16 128/56 96 03/25/21 23:18 118 H 93 03/25/21 23:17 112 H 99 03/25/21 23:12 116 H 96 03/25/21 23:11 120 H 125/59 03/25/21 23:07 112 H 100 03/25/21 23:06 110 H 94 03/25/21 23:02 116 H 94 03/25/21 22:58 113 H 125/55 03/25/21 22:57 113 H 99 03/25/21 22:52 117 H 98 03/25/21 22:47 109 H 97 03/25/21 22:42 122 H 98 03/25/21 22:41 116 H 124/60 03/25/21 22:37 110 H 98 03/25/21 22:32 112 H 98 03/25/21 22:27 117 H 124/58 98 03/25/21 22:22 120 H 97 03/25/21 22:17 114 H 97 03/25/21 22:12 125 H 98 03/25/21 22:11 120 H 114/48 03/25/21 22:08 111 H 108/54 03/25/21 22:07 112 H 98 03/25/21 22:02 120 H 98 03/25/21 22:01 121 H 96/46 03/25/21 21:57 119 H 98 03/25/21 21:56 127 H 103/47 03/25/21 21:52 137 H 99 03/25/21 21:48 136 H 148/67 03/25/21 21:47 134 H 144/77 99 03/25/21 21:44 118 H 145/77 03/25/21 21:42 119 H 144/82 99 03/25/21 21:37 119 H 100 03/25/21 21:32 116 H 100 03/25/21 21:27 101 H 99 03/25/21 21:22 111 H 100 03/25/21 21:17 102 H 100 03/25/21 21:12 106 H 100 03/25/21 21:07 108 H 100 03/25/21 21:02 107 H 132/67 100 03/25/21 21:00 98.3 F 100 03/25/21 20:57 106 H 100 03/25/21 20:52 111 H 100 03/25/21 20:47 121 H 98 03/25/21 20:42 116 H 98 03/25/21 20:37 116 H 98 03/25/21 20:32 119 H 97 03/25/21 20:27 122 H 97 03/25/21 20:22 122 H 99 03/25/21 20:17 124 H 99 03/25/21 20:12 123 H 98 03/25/21 20:07 125 H 99 03/25/21 20:02 121 H 136/66 97 03/25/21 19:57 123 H 99 03/25/21 19:52 116 H 98 03/25/21 19:47 121 H 97 03/25/21 19:42 114 H 97 03/25/21 19:37 116 H 97 03/25/21 19:32 117 H 97 03/25/21 19:27 119 H 96 03/25/21 19:22 124 H 98 03/25/21 19:17 119 H 99 03/25/21 19:13 98.2 F 03/25/21 19:12 119 H 98 03/25/21 19:11 118 H 139/71 03/25/21 19:07 118 H 98 03/25/21 19:02 118 H 136/71 98 03/25/21 18:57 123 H 98 03/25/21 18:52 128 H 97 03/25/21 18:47 122 H 98 03/25/21 18:42 121 H 99 03/25/21 18:37 120 H 99 03/25/21 18:32 124 H 98 03/25/21 18:27 116 H 98 03/25/21 18:22 121 H 98 03/25/21 18:17 118 H 98 03/25/21 18:12 122 H 98 03/25/21 18:07 121 H 96 03/25/21 18:02 118 H 135/71 97 03/25/21 17:57 118 H 99 03/25/21 17:52 120 H 98 03/25/21 17:47 116 H 97 03/25/21 17:42 121 H 97 03/25/21 17:37 122 H 97 03/25/21 17:32 119 H 97 03/25/21 17:27 121 H 97 03/25/21 17:22 118 H 98 03/25/21 17:17 122 H 99 03/25/21 17:12 110 H 94 03/25/21 17:07 112 H 97 03/25/21 17:03 113 H 140/80 03/25/21 17:02 111 H 97 03/25/21 16:57 112 H 96 03/25/21 16:52 111 H 97 03/25/21 16:47 111 H 96 03/25/21 16:42 111 H 98 03/25/21 16:37 114 H 98 03/25/21 16:32 121 H 98 03/25/21 16:27 98.5 F 117 H 97 03/25/21 16:25 126 H 93 03/25/21 16:22 111 H 98 03/25/21 16:17 116 H 95 03/25/21 16:12 110 H 96 03/25/21 16:07 116 H 98 03/25/21 16:02 109 H 142/64 98 03/25/21 15:57 115 H 100 03/25/21 15:52 105 H 98 03/25/21 15:51 111 H 94 03/25/21 15:47 118 H 99 03/25/21 15:46 111 H 91 03/25/21 15:42 109 H 99 03/25/21 15:37 115 H 98 03/25/21 15:32 113 H 98 03/25/21 15:31 106 H 93 03/25/21 15:27 112 H 98 03/25/21 15:22 111 H 98 03/25/21 15:17 98 F 105 H 22 97 03/25/21 15:12 108 H 95 03/25/21 15:07 105 H 96 03/25/21 15:03 107 H 144/68 03/25/21 15:02 103 H 98 03/25/21 14:57 111 H 98 03/25/21 14:52 113 H 99 03/25/21 14:47 110 H 97 03/25/21 14:42 113 H 97 03/25/21 14:37 116 H 98 03/25/21 14:32 110 H 99 03/25/21 14:27 106 H 98 03/25/21 14:22 111 H 99 03/25/21 14:17 107 H 100 03/25/21 14:12 112 H 97 03/25/21 14:07 106 H 99 03/25/21 14:02 106 H 142/74 98 03/25/21 13:57 111 H 99 03/25/21 13:52 109 H 100 03/25/21 13:47 113 H 98 03/25/21 13:42 111 H 97 03/25/21 13:37 120 H 99 03/25/21 13:32 105 H 97 03/25/21 13:27 115 H 99 03/25/21 13:22 109 H 98 03/25/21 13:17 116 H 96 03/25/21 13:12 105 H 97 03/25/21 13:07 111 H 98 03/25/21 13:03 117 H 135/61 03/25/21 13:02 114 H 99 03/25/21 12:57 112 H 99 03/25/21 12:52 112 H 99 03/25/21 12:47 118 H 99 03/25/21 12:42 112 H 98 03/25/21 12:37 112 H 96 03/25/21 12:32 114 H 96 03/25/21 12:27 113 H 98 03/25/21 12:22 118 H 99 03/25/21 12:17 106 H 98 03/25/21 12:12 108 H 99 03/25/21 12:07 113 H 99 03/25/21 12:02 110 H 134/63 99 03/25/21 11:57 106 H 98 03/25/21 11:52 111 H 98 03/25/21 11:47 118 H 97 03/25/21 11:42 120 H 98 03/25/21 11:37 118 H 98 03/25/21 11:32 114 H 98 03/25/21 11:27 109 H 98 03/25/21 11:22 110 H 97 03/25/21 11:17 113 H 98 03/25/21 11:12 112 H 98 03/25/21 11:07 109 H 98 03/25/21 11:03 111 H 137/65 03/25/21 11:02 110 H 97 03/25/21 10:57 111 H 98 03/25/21 10:52 111 H 98 03/25/21 10:49 98.3 F 105 H 18 98 03/25/21 10:47 113 H 98 03/25/21 10:42 114 H 98 03/25/21 10:37 112 H 98 03/25/21 10:32 114 H 99 03/25/21 10:27 121 H 98 03/25/21 10:22 110 H 98 03/25/21 10:17 115 H 99 03/25/21 10:12 111 H 98 03/25/21 10:07 119 H 96 03/25/21 10:02 116 H 141/65 98 03/25/21 09:57 112 H 98 03/25/21 09:52 119 H 98 03/25/21 09:47 113 H 97 03/25/21 09:42 114 H 98 Intake and Output 03/25/21 03/26/21 03/26/21 22:59 06:59 14:59 Intake Total 1000 1683.333 Output Total 1800 1650 Balance -800 1683.333 -1650 Intake: IV 1000 1683.333 Lactated Ringers 1,000 ml 1000 @ 75 mls/hr IV DIRECT REJI Rx#:[id number] MAGNESIUM SULFATE 40GM/ 683.333 1000ML 40 gm In 1,000 ml @ 2 GM/HR 50 mls/hr IV DIRECT REJI Rx#:[id number] Output: Urine 1800 1650 Indwelling Catheter 1800 1650 Other: Total, Output Amount 400 650 - Exam Abdomen: Present: normal appearance, soft. Absent: distention, tenderness, guarding Uterus: Present: normal, firm, fundal height at umbilicus. Absent: bogginess, tenderness Incision: Present: normal, dry, intact - Labs Labs: Abnormal lab results 03/25/21 03/25/21 03/26/21 Range/Units 16:39 22:38 04:58 Magnesium 4.10 H 4.20 H 3.90 H (1.7-2.3) mg/dL
[2021-03-26] MEDS: HYDROcodone/ACETAMINOPHEN 5-325 MG TAB PO PRN ×2 (09:44→17:35)
[2021-03-26] MEDS: ceFAZolin/NS 1 GM/50 ML 1 GM/50 ML BAG IV SCH ×2 (09:44→18:44)
[2021-03-26] MEDS: PRENATAL VIT27-FE FUMARATE-FOLIC ACID VIT TAB PO SCH (09:44)
--- NOTE | 2021-03-26 09:52 | Post Anesthesia Evaluation ---
- Post Anesthesia Evaluation Patient Participated: Yes Airway Patent: Yes Stable Respiratory Function: Yes Nausea/Vomiting: No Temp > 96.8F: Yes Pain Manageable: Yes Adequeate Hydration: Yes Anesthesia Complications: No Block Receding Appropriately: Yes
[2021-03-26 14:09] LABS: Hematocrit 30.9 % (30.3-42.9); Hemoglobin 9.5 gm/dl (10.1-14.3)
[2021-03-26] MEDS ORDERED: ceFAZolin/NS 1 GM/50 ML 1 GM/50 ML BAG IV ONE (18:40)
[2021-03-27] MEDS: IBUPROFEN 800 MG TAB PO PRN ×4 (00:40→20:00)
[2021-03-27] MEDS ORDERED: TETANUS,DIPH,PERTUSS(ACELL) VACCINE 0.5 ML SYRINGE IM ONE (06:00)
[2021-03-27] MEDS: PRENATAL VIT27-FE FUMARATE-FOLIC ACID VIT TAB PO SCH (10:03)
[2021-03-27] MEDS: HYDROcodone/ACETAMINOPHEN 5-325 MG TAB PO PRN ×2 (10:03→17:43)
--- NOTE | 2021-03-27 11:45 | Discharge Summary ---
Providers - Providers Date of Admission: 03/24/21 15:18 Date of discharge: 03/27/21 (desires d/c home today) Attending physician: NU CASTELLON Primary care physician: NU CASTELLON Hospitalization Reason for admission: no care, pre-e @ 39wks Condition: Good Pertinent studies: postop H&H 9.5/30.9, asymptomatic anemia following acute blood loss Procedures: primary c/s Hospital course: c/s and postop course complicated by no care and pre-e Disposition: 01 HOME / SELF CARE / HOMELESS Final Discharge Diagnosis (Prints w/discharge instructions): c/s. Pre-eclampsia Time spent for discharge: 30 - Discharge Diagnoses (1) No care in current in third trimester Status: Acute (2) Status post primary low transverse section Status: Acute Core Measure Documentation - Palliative Care Palliative Care/ Comfort Measures: Not Applicable - Core Measures Any of the following diagnoses?: none Exam - Physical Exam Narrative exam: pt denies POWELL, visual changes, epigastic pain. Incision D&I w/ steristrips. EKG reviewed sinus tach otherwise normal. - Constitutional Vitals: Temp Pulse Resp BP Pulse Ox 98.1 F 104 H 18 135/73 98 03/27/21 08:04 03/27/21 08:04 03/27/21 08:04 03/27/21 08:04 03/27/21 08:04 General appearance: Present: no acute distress, well-nourished - EENT Eyes: Present: PERRL ENT: hearing intact, clear oral mucosa - Neck Neck: Present: supple, normal ROM - Respiratory Respiratory effort: normal Respiratory: bilateral: CTA - Cardiovascular Rhythm: regular - Extremities Extremities: No edema Peripheral Pulses: within normal limits - Abdominal General gastrointestinal: Present: soft, non-tender, non-distended, normal bowel sounds Female genitourinary: Present: normal - Integumentary Integumentary: Present: clear, warm, dry - Musculoskeletal Musculoskeletal: gait normal, strength equal bilaterally - Psychiatric Psychiatric: appropriate mood/affect, intact judgment & insight - Neurologic Neurologic: CNII-XII intact, moves all extremities Plan Activity: advance as tolerated Diet: regular Wound: open to air, keep clean and dry Follow up with: NU CASTELLON MD [Primary Care Provider] - 7 Days (Congratulations! Please call [phone] to schedule a 1 week incision and blood pressure check. Call for any questions or concerns.) Prescriptions: Docusate Sodium [Colace] 100 mg PO BID PRN #60 capsule PRN Reason: Constipation Ferrous Sulfate [Feosol 325 MG tab] 325 mg PO QDAY #60 tablet Ibuprofen [Motrin 800 MG tab] 800 mg PO Q8HR PRN #30 tablet PRN Reason: Pain, Moderate (4-6) oxyCODONE /ACETAMINOPHEN [Percocet 5/325] 1 tab PO Q4HR #30 tab
[2021-03-28] MEDS: IBUPROFEN 800 MG TAB PO PRN ×3 (06:50→18:09)
[2021-03-28] MEDS: PRENATAL VIT27-FE FUMARATE-FOLIC ACID VIT TAB PO SCH (09:41)
[2021-03-28] MEDS: HYDROcodone/ACETAMINOPHEN 5-325 MG TAB PO PRN ×4 (09:41→22:00)
--- NOTE | 2021-03-28 12:39 | Progress Note ---
Assessment and Plan patient feeling well, denies SOB, POWELL, visual changes or epigastic pain. incision D&I w/ steristrips. - Patient Problems (1) No care in current in third trimester Current Visit: Yes Status: Acute (2) Status post primary low transverse section Current Visit: Yes Status: Acute Plan to address problem: continue postop pathway (3) Tachycardia Current Visit: Yes Status: Acute Plan to address problem: will cancel d/c and order cardiology consult d/t persistent maternal tachycardia Subjective - Subjective Date of service: 03/28/21 Principal diagnosis: POD#3 s/p 1LTCS; no PNC, pre-e, tachycardia Patient reports: appetite normal, voiding normally, pain well controlled, flatus, ambulating normally, no dizzy ambulation, no nauseated, no other (denies SOB) [place]: doing well, nursing well Objective - Vital Signs Latest vital signs: Vital Signs Temp Pulse Resp BP Pulse Ox Pulse Ox 03/28/21 11:52 98.1 F 115 H 20 154/83 99 03/28/21 07:49 98.0 F 95 H 20 137/59 100 03/28/21 06:50 18 03/28/21 03:50 109 H 20 131/63 98 03/28/21 01:01 97.9 F 107 H 20 147/88 99 03/28/21 01:00 18 03/28/21 00:00 18 03/27/21 21:49 88 20 140/74 99 03/27/21 21:00 18 03/27/21 20:00 18 98 03/27/21 15:30 98.0 F 96 H 18 148/77 95 Intake and Output 03/27/21 03/28/21 03/28/21 23:59 07:59 15:59 Intake Total 600 360 200 Balance 600 360 200 Intake: Oral 600 360 200 Other: Total, Intake Amount 120 240 200 # Voids Void 1 1 1 - Exam Breasts: Present: normal, Cardiovascular: Present: Regular rate Lungs: Present: Clear to auscultation, Normal air movement Abdomen: Present: normal appearance, soft. Absent: distention, tenderness, guarding Vulva: both: normal Uterus: Present: normal, firm, fundal height at umbilicus Extremities: Present: edema (1+) Deep Tendon Reflex Grade: Normal +2 Incision: Present: normal, dry, intact
[2021-03-28] MEDS: METOPROLOL TARTRATE 25 MG TAB PO SCH ×2 (16:22→22:00)
[2021-03-29] MEDS: IBUPROFEN 800 MG TAB PO PRN ×2 (05:00→13:44)
--- NOTE | 2021-03-29 09:06 | Progress Note ---
Assessment and Plan A: 25 y.o. s/p primary and mag infusion, Pre eclampsia and tachycardia. P: Continue with care. Echo ordered by cardiology. Awaiting their further recommendations after Echo completed. Continue with Metoprolol 25 mg BID. Continue to monitor maternal heart rate and blood pressures. Continue to monitor for worsening s/sx of pre elcampsia. Advance diet as tolerated. Encourage continued ambulation. Anticipate discharge home on 03/30/21. Subjective - Subjective Date of service: 03/29/21 Principal diagnosis: POD#3 s/p 1LTCS; no PNC, pre-e, tachycardia Patient reports: appetite normal, voiding normally, pain well controlled, flatus, ambulating normally : doing well Objective - Vital Signs Latest vital signs: Vital Signs Temp Pulse Resp BP BP Pulse Ox Pulse Ox 03/29/21 07:42 98.7 F 50 H 158/82 03/29/21 06:00 18 03/29/21 05:48 98.2 F 97 H 20 119/58 100 03/29/21 05:00 18 03/29/21 01:16 98.2 F 101 H 20 132/66 100 03/28/21 23:00 18 03/28/21 22:00 96 H 18 149/67 03/28/21 21:54 98.8 F 98 H 18 149/67 100 03/28/21 20:27 98.4 F 105 H 20 117/57 100 03/28/21 20:00 98 03/28/21 16:20 109 H 155/82 96 03/28/21 15:47 97.7 F 110 H 20 157/84 96 03/28/21 11:52 98.1 F 115 H 20 154/83 99 Intake and Output 03/28/21 03/29/21 03/29/21 22:59 06:59 14:59 Intake Total 220 480 Balance 220 480 Intake: Oral 220 Intake, Free Water 480 Other: Total, Intake Amount 220 # Voids Void 1 1 - Exam Narrative Exam: Pt denies POWELL, blurred vision, spots before her eyes, chest pain, shortness of breath, and upper abdominal pain. Blood pressure ranges have been 119-150's/50-80's. Maternal heart rate has been 90-low 100's. Cardiology was consulted d/t persistent maternal tachycardia. Max HR 130's. Breasts: Present: deferred Cardiovascular: Present: Normal S1, Normal S2 Lungs: Present: Clear to auscultation Abdomen: Present: normal appearance, soft, normal bowel sounds Vulva: both: normal Uterus: Present: normal, firm Extremities: Present: edema (Trace edema noted. ) Incision: Present: normal, dry, intact
[2021-03-29] MEDS: PRENATAL VIT27-FE FUMARATE-FOLIC ACID VIT TAB PO SCH (09:40)
[2021-03-29] MEDS: METOPROLOL TARTRATE 25 MG TAB PO SCH ×2 (11:20→22:00)
--- NOTE | 2021-03-29 14:07 | Consultation ---
History of Present Illness Consult date: 03/29/21 Requesting physician: ANGÉLICA BROWN Consult reason: tachycardia History of present illness: Patient is a 25-year-old female status post day 3 who came to [facility] on 03/24/2021 for complaint of high blood pressure. Patient was found to be with possible preeclampsia. Patient had a procedure while here. Patient was found to be tachycardic and have hypertens ion. Patient denies any cardiac complaints including chest pain, shortness of breath, palpitations, lightheadedness, or nausea or vomiting. Patient is previously unknown to our practice. Cardiology is consulted for tachycardia Past History Past Medical History: No medical history Past Surgical History: Social history: no significant social history, single Family history: no significant family history Medications and Allergies Allergies Allergy/AdvReac Type Severity Reaction Status Date / Time No Known Allergies Allergy Unverified 01/29/21 12:27 Home Medications Medication Instructions Recorded Confirmed Last Taken Type Docusate Sodium [Colace] 100 mg PO BID PRN #60 capsule 03/26/21 Unknown Rx Ferrous Sulfate [Feosol 325 MG tab] 325 mg PO QDAY #60 tablet 03/26/21 Unknown Rx Ibuprofen [Motrin 800 MG tab] 800 mg PO Q8HR PRN #30 tablet 03/26/21 Unknown Rx oxyCODONE /ACETAMINOPHEN [Percocet 1 tab PO Q4HR #30 tab 03/26/21 Unknown Rx 5/325] Active Meds: Active Medications Acetaminophen (Acetaminophen 500 Mg Tab) 1,000 mg PO Q6H PRN PRN Reason: Pain MILD(1-3)/Fever >100.5/POWELL Hydrocodone Bitart/Acetaminophen (Hydrocodone/Acetaminophen 5-325 Mg Tab) 1 each PO Q4H PRN PRN Reason: Pain, Moderate (4-6) Last Admin: 03/28/21 22:00 Dose: 1 each Documented by: Butorphanol Tartrate (Butorphanol 2 Mg/1 Ml Inj) 1 mg IV Q2H PRN PRN Reason: Pain, Moderate(4-6) LABOR PAIN Carboprost Tromethamine (Carboprost Tromethamine 250 Mcg/1 Ml Inj) 250 mcg IM ONCE PRN PRN Reason: Uterine Bleeding Ephedrine Sulfate (Ephedrine Sulfate 50 Mg/1 Ml Inj) 10 mg IV Q2M PRN PRN Reason: Hypotension Fentanyl (Fentanyl 100 Mcg/2 Ml Inj) 100 mcg IV Q2H PRN PRN Reason: Pain,Severe (7-10) LABOR PAIN Last Admin: 03/25/21 16:43 Dose: 100 mcg Documented by: Lactated Ringer's (Lactated Ringers) 1,000 mls @ 75 mls/hr IV DIRECT REJI Last Admin: 03/26/21 21:41 Dose: 75 mls/hr Documented by: Oxytocin/Sodium Chloride (Pitocin/Ns 30 Unit/500ml) 30 units in 500 mls @ 40 mls/hr IV TITR REJI; Protocol Last Admin: 03/26/21 03:04 Dose: 40 mls/hr, 40 mls/hr Documented by: Magnesium Sulfate (Magnesium Sulfate 40gm/1000ml) 40 gm in 1,000 mls @ 50 mls/hr IV DIRECT REJI Last Admin: 03/26/21 19:42 Dose: 2 gm/hr, 50 mls/hr Documented by: Fentanyl/Bupivacaine/Sodium Chlor (Fentanyl-Bupiv 2 Mcg/Ml-0.125%) 200 mcg in 100 mls @ 12 mls/hr EPIDURAL TITR REJI; Protocol Oxytocin/Sodium Chloride (Pitocin/Ns 30 Unit/500ml) 30 units in 500 mls @ 4 mls/hr IV TITR REJI; Protocol Last Titration: 03/25/21 12:04 Dose: 8 mls/hr, 8 mls/hr Documented by: Ibuprofen (Ibuprofen 800 Mg Tab) 800 mg PO Q6H PRN PRN Reason: Pain, Moderate (4-6) Last Admin: 03/29/21 13:44 Dose: 800 mg Documented by: Ketorolac Tromethamine (Ketorolac 30 Mg/1 Ml Inj) 15 mg IV Q6H PRN PRN Reason: Pain, Mild (1-3) Stop: 03/31/21 00:40 Loperamide HCl (Loperamide 2 Mg Cap) 2 mg PO ONCE PRN PRN Reason: give with Hemabate Metoprolol Tartrate (Metoprolol Tartrate 25 Mg Tab) 25 mg PO BID REJI Last Admin: 03/29/21 11:20 Dose: 25 mg Documented by: Mineral Oil (Mineral Oil 30 Ml Oral Liqd) 30 ml PO QHS PRN PRN Reason: Constipation Misoprostol (Misoprostol 200 Mcg Tab) 800 mcg ME ONCE PRN PRN Reason: Uterine Bleeding Morphine Sulfate (Morphine 4 Mg/1 Ml Inj) 4 mg IV Q4H PRN PRN Reason: Pain , Severe (7-10) Multi-Ingredient Ointment (Lanolin/Zinc/Dimethicone (Lansinoh) 7 Gm) 1 applic TP PRN PRN PRN Reason: dryness/cracking Last Admin: 03/28/21 10:43 Dose: 1 applic Documented by: Multivitamins/Iron/Calcium ( [id number] Fumarate-Folic Acid Vit Tab) 1 each PO QDAY REJI Last Admin: 03/29/21 09:40 Dose: 1 each Documented by: Naloxone HCl (Naloxone 0.4 Mg/1 Ml Inj) 0.1 mg IV Q2MIN PRN PRN Reason: Res Rate </= 8 or 02 SAT < 92% Ondansetron HCl (Ondansetron 4 Mg/2 Ml Inj) 4 mg IV Q8H PRN PRN Reason: Nausea And Vomiting Oxytocin (Oxytocin 10 Unit/1 Ml Inj) 10 unit IM ONCE PRN PRN Reason: Uterine Bleeding Promethazine HCl (Promethazine 25 Mg Tab) 25 mg PO Q6H PRN PRN Reason: Nausea And Vomiting Terbutaline Sulfate (Terbutaline 1 Mg/1 Ml Inj) 0.25 mg SUB-Q ONCE PRN PRN Reason: Hyperstimulation/Hypertonicity Witch January/Glycerin (Witch January/ Glycerin Pad) 1 each TP PRN PRN PRN Reason: Hemorrhoids/cleansing/soothing Review of Systems Constitutional: no weight loss, no weight gain, no fever Ears, nose, mouth and throat: no nasal discharge, no sinus pressure, no sinus pain Cardiovascular: no chest pain, no orthopnea, no palpitations, no rapid/irregular heart beat, no syncope, no shortness of breath, no dyspnea on exertion Respiratory: no shortness of breath, no dyspnea on exertion Gastrointestinal: no nausea, no vomiting, no diarrhea Musculoskeletal: no neck stiffness, no neck pain Integumentary: no rash, no pruritis, no redness Neurological: no paralysis, no weakness, no seizures, no syncope Psychiatric: no anxiety, no memory loss Endocrine: no cold intolerance, no heat intolerance Hematologic/Lymphatic: no easy bruising, no easy bleeding Physical Examination Vital Signs Pulse BP Pulse Ox 70 143/92 99 03/24/21 12:14 03/24/21 12:14 03/24/21 12:14 General appearance: no acute distress HEENT: Positive: PERRL Cardiac: Positive: Regular Rhythm, Tachycardia Lungs: Positive: Normal Breath Sounds Neuro: Positive: Grossly Intact Abdomen: Positive: Soft Skin: Negative: Rash, Suspicious Lesions Extremities: Present: upper extr. pulses Results 03/26/21 13:19 03/24/21 13:10 - Imaging and Cardiology Echo: report reviewed EKG interpretations - Telemetry EKG Rhythm: Sinus Tachycardia - EKG Sinus rhythms and dysrhythmias: sinus tachycardia Assessment and Plan Patient is a 25-year-old female status post day 3 who came to [facility] on 03/24/2021 for complaint of high blood pressure Preeclampsia S/p days 3 Tachycardia Echo 03/28/2021-EF 50 to 55% mild diastolic dysfunction present impaired relaxation pattern. Right ventricle is normal in size right ventricle systolic function is normal Plan: EKG shows sinus tach 106 no acute ischemic changes. Patient has no cardiac complaints. Tachycardia likely physiological as a result of and preeclampsia Continue metoprolol 25 mg p.o. twice daily Patient cardiac status stable. Will sign off Patient seen in conjunction with Dr. Gunter who agrees with this plan of care - Patient Problems (1) Status post primary low transverse section Current Visit: Yes Status: Acute (2) Tachycardia Current Visit: Yes Status: Acute (3) Pre-eclampsia in third trimester Current Visit: Yes Status: Acute (4) No care in current in third trimester Current Visit: Yes Status: Acute (5) with 39 completed weeks gestation Current Visit: Yes Status: Resolved
[2021-03-29] MEDS: HYDROcodone/ACETAMINOPHEN 5-325 MG TAB PO PRN ×2 (18:13→22:00)
[2021-03-30] MEDS: IBUPROFEN 800 MG TAB PO PRN (02:00)
[2021-03-30 07:42] VITALS: BP 157/81
--- NOTE | 2021-03-30 08:25 | Discharge Summary ---
Providers - Providers Date of Admission: 03/24/21 15:18 Date of discharge: 03/30/21 Attending physician: NU CASTELLON 03/28/21 12:30 Consult to Physician [CONS] Routine Comment: Dr. Crocker -[phone] Consulting Provider: FLOYD CROCKER Physician Instructions: Reason For Exam: maternal Tachycardia, pre-e Primary care physician: NU CASTELLON Hospitalization Reason for admission: elevated b/p, no care Condition: Good Pertinent studies: Echo, EKG, lab work Procedures: primary c/s Hospital course: c/s and postop course complicated by no care, pre-e and tachycardia Disposition: 01 HOME / SELF CARE / HOMELESS Final Discharge Diagnosis (Prints w/discharge instructions): c/s, pre-e, tachycardia - Discharge Diagnoses (1) No care in current in third trimester Status: Acute (2) Status post primary low transverse section Status: Acute (3) Tachycardia Status: Acute (4) Pre-eclampsia in third trimester Status: Acute Core Measure Documentation - Palliative Care Palliative Care/ Comfort Measures: Not Applicable - Core Measures Any of the following diagnoses?: none Exam - Constitutional Vitals: Temp Pulse Resp BP Pulse Ox 98.5 F 103 H 20 157/81 98 03/30/21 07:10 03/30/21 07:10 03/30/21 07:10 03/30/21 07:10 03/30/21 07:10 General appearance: Present: no acute distress, well-nourished - EENT Eyes: Present: PERRL ENT: hearing intact, clear oral mucosa - Neck Neck: Present: supple, normal ROM - Respiratory Respiratory effort: normal Respiratory: bilateral: CTA - Cardiovascular Rhythm: regular Heart Sounds: Absent: rub, click - Extremities Extremities: No edema Peripheral Pulses: within normal limits - Abdominal General gastrointestinal: Present: soft, non-tender, non-distended, normal bowel sounds Female genitourinary: Present: normal - Integumentary Integumentary: Present: clear, warm, dry - Musculoskeletal Musculoskeletal: gait normal, strength equal bilaterally - Psychiatric Psychiatric: appropriate mood/affect, intact judgment & insight - Neurologic Neurologic: CNII-XII intact, moves all extremities - Additional findings Additional findings: lochia scant, fundus firm, incision D&I w/ steristrips Plan Activity: advance as tolerated Diet: low salt Wound: open to air, keep clean and dry Follow up with: NU CASTELLON MD [Primary Care Provider] - 7 Days (Congratulations! Please call [phone] to schedule a 1 week incision and blood pressure check. Call for any questions or concerns.) Forms: [facility] Discharge Summary Prescriptions: Docusate Sodium [Colace] 100 mg PO BID PRN #60 capsule PRN Reason: Constipation Ferrous Sulfate [Feosol 325 MG tab] 325 mg PO QDAY #60 tablet Metoprolol [Lopressor TAB] 25 mg PO BID #30 tablet Ibuprofen [Motrin 800 MG tab] 800 mg PO Q8HR PRN #30 tablet PRN Reason: Pain, Moderate (4-6) oxyCODONE /ACETAMINOPHEN [Percocet 5/325] 1 tab PO Q4HR #30 tab
== END 2021-03-30 10:55 | disposition home or self-care (01) | DRG 788 ==
LOC: TRG 11:21 → APU 11:23 → TRG 15:18 → LD 15:18 → OB 03-27 04:05
PROVIDERS: ADMIT Obstetrics & Gynecology; ATTEND Obstetrics & Gynecology
PROC: 10D00Z1 Extraction of Products of Conception, Low, Open Approach (ICD-10-PCS; principal; 2021-03-25)
PROC: 3E0234Z Introduction of Serum, Toxoid and Vaccine into Muscle, Percutaneous Approach (ICD-10-PCS; 2021-03-27)
DX: O69.81X0 Labor and delivery complicated by cord around neck, without compression, not applicable or unspecified (principal); O14.94 Unspecified pre-eclampsia, complicating childbirth; Z3A.39 39 weeks gestation of pregnancy; Z37.0 Single live birth; Z20.822 Contact with and (suspected) exposure to COVID-19; O16.4 Unspecified maternal hypertension, complicating childbirth; O99.892 Other specified diseases and conditions complicating childbirth; R00.0 Tachycardia, unspecified; Z23 Encounter for immunization
CPT/HCPCS: 36415; 59200; 76816; 80307; 81001; 82565; 83615; 83735; 84450; 84460; 84550; 85014; 85018; 85027; 86592; 86706; 86762; 86803; 86850; 86900; 86901; 87806; 88307; 93005; 93306; G0378; J3490; J0290; J0690; J1100; J1885; J2590; J2765; J3010; J3475; J7120; U0003